=== PATIENT | male | born 1960 | race Caucasian/White ===

== ENCOUNTER 2016-11-05 10:49 | Outpatient (CLI) | payer OTHER | END 2016-11-05 10:50 | disposition home or self-care (01) | DX: M19.041 Primary osteoarthritis, right hand (principal) ==

== ENCOUNTER 2017-03-08 10:40 | Inpatient (IN) | payer OTHER ==
--- NOTE | 2017-03-08 12:47 | ED Physician Documentation ---
PD HPI ABD PAIN - Stated complaint Stated Complaint: RECTAL PAIN - Chief complaint Chief Complaint: Abd Pain - History obtained from History obtained from: Patient - History of Present Illness Timing - onset: How many weeks ago (1 week of rectal pain worsening to severe the past day or so.) Timing - duration: Weeks (1) Timing - details: Gradual onset, Still present Quality: Cramping, Aching, Stabbing, Pain (rectal area with sitting, wiping, pressure. Worse the past couple of days.). No: Fullness/distended Location: Other (perirectal and some to LLQ area.) Improved by: Position. No: Eating Worsened by: Position, Palpation. No: Eating Associated symptoms: Nausea. No: Fever, Vomiting, Diarrhea, Constipation, Dysuria Similar symptoms before: Has not had sx before Review of Systems Ten Systems: 10 systems reviewed and negative Constitutional: reports: Fever (subjective), Chills, Myalgias Nose: denies: Rhinorrhea / runny nose, Congestion Throat: denies: Sore throat Cardiac: denies: Chest pain / pressure, Palpitations Respiratory: denies: Dyspnea, Cough GI: reports: Abdominal Pain. denies: Nausea, Vomiting, Constipation, Diarrhea : denies: Dysuria, Frequency Skin: denies: Rash, Lesions Musculoskeletal: denies: Neck pain, Back pain Neurologic: denies: Generalized weakness, Focal weakness, Numbness, Near syncope Endocrine: reports: Easy bruising / bleeding. denies: Weight loss, Weight gain PD PAST MEDICAL HISTORY - Past Medical History Cardiovascular: Hypertension, Deep vein thrombosis, Atrial fibrillation Respiratory: Sleep apnea Endocrine/Autoimmune: None GI: GERD, Colon polyps : None HEENT: None Psych: Depression Musculoskeletal: Osteoarthritis Derm: None - Past Surgical History General: Colonoscopy, Other Ortho: Arthroscopic surgery, Other HEENT: Tonsil/Adenoidectomy - Present Medications Home Medications: Ambulatory Orders Medication Instructions Recorded Confirmed Folic Acid/Multivit-Min/Lutein 1 each PO DAILY 05/13/13 03/08/17 [Multi-Vitamin Gummies] Venlafaxine [Effexor] 37.5 mg PO DAILY 05/13/13 03/08/17 Vitamin B Complex [B Complex] 1 each PO DAILY 05/13/13 03/08/17 Fish Oil/Borage/Flax/Om3,6,9#1 400 mg PO DAILY 08/19/13 03/08/17 [Hehvlehb-Ecza-Ktgyaa Oil Sftgl] Hydrocodone/Acetaminophen 1 tab PO Q6HR PRN 01/23/16 03/08/17 [Hydrocodon-Acetaminophen 5-325] Rivaroxaban [Xarelto] 20 mg PO QPM 01/23/16 03/08/17 Atorvastatin [Lipitor] 10 mg PO QPM 03/08/17 03/08/17 Sildenafil Citrate [Viagra] 50 - 100 mg PO DAILY PRN 03/08/17 03/08/17 - Allergies Allergies/Adverse Reactions: Allergies Allergy/AdvReac Type Severity Reaction Status Date / Time lisinopril Allergy Respiratory Verified 03/08/17 10:49 - Social History Does the pt smoke?: No Smoking Status: Never smoker Does the pt drink ETOH?: No Does the pt have substance abuse?: No - Immunizations Immunizations are current?: Yes PD ED PE NORMAL - Vitals Vital signs reviewed: Yes - General General: Alert and oriented X 3, Well developed/nourished - HEENT HEENT: Pharynx benign - Neck Neck: Supple, no meningeal sign, No adenopathy - Cardiac Cardiac: RRR, No murmur - Respiratory Respiratory: Clear bilaterally - Abdomen Abdomen: Normal bowel sounds, Soft, Non tender, Non distended, No organomegaly - Male Male : Deferred - Rectal Rectal: Other (marked perirectal and digital rectal tenderness, without palpable induration and no noted pointing/redness/ drainage. ) - Back Back: No CVA TTP - Derm Derm: Normal color, Warm and dry, No rash - Extremities Extremities: No tenderness to palpate, Normal ROM s pain, No edema, No calf tenderness / cord - Neuro Neuro: Alert and oriented X 3, No motor deficit, No sensory deficit, Normal speech - Psych Psych: Normal mood, Normal affect Results - Vitals Vitals: Vital Signs - 24 hr 03/08/17 03/08/17 03/08/17 10:47 12:30 14:44 Temperature 36.7 C 37.1 C Heart Rate 91 85 77 Heart Rate [ Brachial] Respiratory 14 17 18 Rate Blood Pressure 142/80 H 122/62 121/62 Blood Pressure [Left Brachial artery] O2 Saturation 100 98 97 03/08/17 15:15 Temperature 36.6 C Heart Rate Heart Rate [ 77 Brachial] Respiratory 16 Rate Blood Pressure Blood Pressure 139/72 H [Left Brachial artery] O2 Saturation 97 Oxygen O2 Source Room air - Labs Labs: Laboratory Tests 03/08/17 03/08/17 03/08/17 13:24 13:24 13:24 WBC 15.3 H RBC 4.44 L Hgb 13.8 L Hct 40.6 L MCV 91.6 MCH 31.0 MCHC 33.9 RDW 13.3 Plt Count 213 MPV 9.0 Neut # 12.0 H Lymph # 1.6 [place] # 1.6 H Eos # 0.1 Baso # 0.0 Absolute Nucleated RBC 0.01 Nucleated RBCs 0.1 PT 15.1 H INR 1.3 H APTT 28.1 Sodium 136 Potassium 3.5 Chloride 102 Carbon Dioxide 26 Anion Gap 8.0 BUN 19 Creatinine 1.0 Estimated GFR (MDRD) 77 L Glucose 107 H Calcium 8.9 Total Bilirubin 1.4 H AST 17 ALT 17 Alkaline Phosphatase 83 Total Protein 7.3 Albumin 3.9 Globulin 3.4 Albumin/Globulin Ratio 1.1 Lipase 18 L - Rads (name of study) pelvic CT Radiology: Prelim report reviewed (5x2x3 cm rectal abscess with question of early fistula tract. ) PD MEDICAL DECISION MAKING - ED course Complexity details: reviewed results, considered differential (perirectal abscess not easily accessible externally and he is on Xarelto. Given IV abx and pain meds. ), d/w patient, d/w medical consultant (Dr. Barnett, Surgery, who talked with surgery at [facility] to discuss if would be done here or transferred. Subsequently patient felt to be stable enough to be able to hold Xarelto and do drainage surgery here. Deferred to Hospitalist given the concurrent medical history. ) Departure - Departure Disposition: 66 [facility] DC/Xfer Clinical Impression: Rosa-rectal abscess, Anticoagulant long-term use Leukocytosis Qualifiers: Leukocytosis type: unspecified Qualified Code(s): D72.829 - Elevated white blood cell count, unspecified Condition: Stable Record reviewed to determine appropriate education?: Yes Discharge Date/Time: 03/08/17 17:10
[2017-03-08] MEDS ORDERED: KETOROLAC 60 MG/2 ML VIAL IVP STA (13:02)
[2017-03-08] MEDS ORDERED: ONDANSETRON 4 MG/2 ML VIAL IVP STA (13:02)
[2017-03-08] MEDS ORDERED: HYDROmorphone 1 MG/ML SYRINGE IVP STA (13:02)
[2017-03-08] MEDS ORDERED: HYDROmorphone 1 MG/ML SYRINGE ONE (13:23)
[2017-03-08] MEDS ORDERED: ONDANSETRON 4 MG/2 ML VIAL ONE (13:23)
[2017-03-08] MEDS ORDERED: KETOROLAC 30 MG/ML VIAL ONE ×2 (13:24)
[2017-03-08 13:34] LABS: BASOPHILS % (AUTO) 0.3 %; EOSINOPHILS # (AUTO) 0.1 10^3/uL (0.0-0.7); EOSINOPHILS % (AUTO) 0.4 %; HCT - HEMATOCRIT 40.6 % (42.0-52.0); HGB - HEMOGLOBIN 13.8 g/dL (14.0-18.0); LYMPHOCYTES # (AUTO) 1.6 10^3/uL (1.5-3.5); LYMPHOCYTES % (AUTO) 10.3 %; MEAN CORPUSCULAR HGB CONC 33.9 g/dL (32.0-36.0); MEAN CORPUSCULAR VOLUME 91.6 fL (80.0-94.0); MONOCYTES # (AUTO) 1.6 10^3/uL (0.0-1.0); MONOCYTES % (AUTO) 10.5 %; NEUTROPHILS % (AUTO) 78.5 %; NUCLEATED RED BLOOD CELLS AUTO 0.1 /100WBC; RED BLOOD COUNT 4.44 10^6/uL (4.70-6.10); RED CELL DISTRIBUTION WIDTH 13.3 % (12.0-15.0); UNCORRECTED WHITE BLOOD COUNT 15.3 x10^3/uL; WHITE BLOOD COUNT 15.3 x10^3/uL (4.8-10.8)
[2017-03-08] MEDS ORDERED: IOPAMIDOL-300 100 ML VIAL IVP ONE (13:36)
[2017-03-08 13:37] LABS: INR 1.3 (0.8-1.2); PT - PROTHROMBIN TIME 15.1 secs (9.9-12.6)
[2017-03-08 13:44] LABS: PARTIAL THROMBOPLASTIN TIME 28.1 secs (24.9-33.3)
[2017-03-08 13:46] LABS: ALBUMIN/GLOBULIN RATIO 1.1 (1.0-2.2); BILIRUBIN,TOTAL 1.4 mg/dL (0.2-1.0); CALCIUM 8.9 mg/dL (8.5-10.3); POTASSIUM 3.5 mmol/L (3.5-5.0); TOTAL PROTEIN 7.3 g/dL (6.7-8.2)
[2017-03-08] MEDS ORDERED: cefTRIAXone 1 GM in SODIUM CHLORIDE 0.9% MINIBAG 100 ML IV STA (13:48)
[2017-03-08] MEDS ORDERED: metroNIDAZOLE 500 MG/100 ML 100 ML IV ONE (13:48)
[2017-03-08] MEDS ORDERED: cefTRIAXone 1 GM VIAL ONE (13:56)
--- NOTE | 2017-03-08 14:06 | CT Preliminary Report ---
Exam: CT Abdomen/Pelvis W/ IMPRESSION: 5.6 x 2.4 x 2.9 cm posterior perirectal abscess with partial fistulous tract formation to the left buttock/perianal soft tissues. RADIA The above findings were discussed with Dr. Ahmadi by Dr. Светлана Corona at 14:04 hrs on 03/08/17. SITE ID: [id number]
[2017-03-08] MEDS ORDERED: metroNIDAZOLE 500 MG/100 ML 100 ML ONE (14:38)
--- NOTE | 2017-03-08 15:04 | CT Report ---
EXAM: CT ABDOMEN AND PELVIS EXAM DATE: 03/08/2017 01:36 PM. CLINICAL HISTORY: Rectal pain for few days; feverish. COMPARISONS: None. TECHNIQUE: Routine helical CT imaging was performed through the abdomen and pelvis. IV contrast: 100 mL Isovue 300. Enteric contrast: No. Reconstructions: Coronal and sagittal. In accordance with CT protocol optimization, one or more of the following dose reduction techniques w ere utilized for this exam: automated exposure control, adjustment of mA and/or KV based on patient s ize, or use of iterative reconstructive technique. FINDINGS: Lung Bases: Unremarkable. Liver: Normal. No masses. Gallbladder/Bile Ducts: Unremarkable. Spleen: Normal. Pancreas: Normal. Adrenal Glands: Normal. Kidneys: Normal. No masses or hydronephrosis. Peritoneal Cavity/Bowel: Normal. No free fluid, free air or adenopathy. No masses or acute inflammato ry process. The appendix is well visualized and normal. Pelvic Organs: 5.6 x 2.4 x 2.9 cm fluid collection with a thick irregular enhancing wall, and a tiny amount of air, axial image 99, coronal image 88, centered posterior to the mid rectum. Small amount o f adjacent edema. This abscess does not extend to the skin although there is a 8 mm linear extension of this abscess, more posteriorly and to the left, to within 1 cm of the skin of the adjacent left bu ttock. Normal prostate. Normal seminal vesicles. Small caliber urinary bladder without stones. Vasculature: No aneurysms or other significant abnormality. Bones: No significant abnormality. Other: None. IMPRESSION: 5.6 x 2.4 x 2.9 cm posterior perirectal abscess with partial fistulous tract formation to the left buttock/perianal soft tissues. RADIA The above findings were discussed with Dr. Ahmadi by Dr. Светлана Corona at 14:04 hrs on 03/08/17. Referring Provider Line: [phone] SITE ID: [id number]
[2017-03-08] MEDS ORDERED: SODIUM CHLORIDE 0.9% 1,000 ML IV ONE (16:30)
[2017-03-08] MEDS ORDERED: SODIUM CHLORIDE FLUSH 0.9% 10 ML SYRINGE IVP PRN (16:34)
[2017-03-08] MEDS ORDERED: ONDANSETRON ODT 4 MG TABLET TL PRN (16:34)
[2017-03-08] MEDS ORDERED: AMPICILLIN/SULBACTAM 3 GM in SODIUM CHLORIDE 0.9% MINIBAG 100 ML IV STA (16:38)
--- NOTE | 2017-03-08 17:53 | HISTORY & PHYSICAL EXAMINATION ---
DATE OF ADMISSION: 03/08/2017 PRIMARY CARE PROVIDER: Rupert Garrison MD. CHIEF COMPLAINT: Rectal pain. HISTORY OF PRESENT ILLNESS: The patient says he has had the pain for 3 days, woke up and felt somethi ng was different. The pain got worse over a period of time. No increased pain with pooping. The patie nt said he has had no bleeding in his poop, no pus in the poop, has not pooped since yesterday, but t hen he has not eaten since yesterday. The patient had fevers last 2 nights, sweats last night. The pa joie has had no nausea, vomiting, diarrhea. REVIEW OF SYSTEMS: A complete review of systems collected and positive only as noted in the history o f present illness, otherwise negative except he does have nocturia some of the time depending on how much water he drinks and how late. PAST MEDICAL HISTORY: Remarkable for hypertension, DVT last year, atrial fibrillation in the remote p ast. The patient also has sleep apnea. The patient had GERD and colon polyps also. He has depression. The patient has arthritis. PAST SURGICAL HISTORY: Colonoscopy, arthroscopic surgery, tonsils and adenoidectomy. ALLERGIES: LISINOPRIL. MEDICATIONS: 1. Folic acid 1 a day. 2. Effexor 75 mg once a day. 3. Vitamin B complex 1 a day. 4. Fish oil 4 mg a day. 5. Hydrocodone/acetaminophen 5/325 mg. 1 every 6 hours as needed. 6. Xarelto (rivaroxaban) 20 mg a day. PERSONAL AND SOCIAL HISTORY: The patient was born in [place], but raised in [facility], to be [employer] [facility]. After high school the patient went into the [employer], worked for the [employer], and he has worked various jobs including [employer] and [employer]. The patient smoked for a very short ti me cigarettes. The patient used to drink fairly heavily, but has not drank anything in the last 5 yea rs. FAMILY HISTORY: Positive for stroke. Mother and half-brother with diabetes, melanoma. PHYSICAL EXAMINATION: GENERAL: Male of stated age, well-developed, well-nourished, does not appear in any acute distress. VITAL SIGNS: Temperature 36.7, 91, 14, 142/80, 100. EYES: EOMs within normal limits. PERRLA. Nonicteric. MOUTH AND THROAT: Moist mucous membranes. No other pathology noted. NECK: Supple. Nontender. No lymphadenopathy, no thyromegaly. CHEST WALL: Nontender. Symmetric. HEART: Normal sinus rhythm. No murmur, rubs, clicks heard. LUNGS: Clear to auscultation. ABDOMEN: Soft, nontender, normal bowel sounds all 4 quadrants. The patient's rectal exams is not done by this physician, it was previously done. EXTREMITIES: No edema, 1+ distal pulses, normal capillary refill. SKIN: No suspicious lesions, dermatitis noted. NEURO: Cognition intact. Cranial nerves intact. Motor intact. LABORATORY DATA: White count is 15.3, 13 and 40 hemoglobin and hematocrit, platelets are 213. INR is 1.3, PTT 28.1. Sodium 136, potassium 3.5, chloride 26, CO2 is 19, creatinine is 1.0, glucose 107, sushila cium 8.9, bilirubin 1.4. Liver enzymes are normal. Albumin is 3.9. The patient's CAT scan shows the a bscess perirectal. SUMMARY: This is a 56-year-old gentleman with a 3-day history of rectal pain, fevers, past medical hi story remarkable for DVT, atrial fibrillation, hypertension, depression, sleep apnea. He was admitted with a perirectal abscess and requiring surgical incision and drainage and IV antibiotics. DIAGNOSES: 1. Perirectal abscess. 2. Hypertension. 3. Obstructive sleep apnea. 4. Gastrointestinal reflux disease. 5. Depression. DISCUSSION/DECISION MAKIN. Perirectal abscess will be drained by Dr. Barnett who has been consulted. The patient will have I V antibiotics, namely Unasyn and Flagyl to cover the anaerobes, as well as the gram negatives. Also w ill cover gram-positives if there is skin etiology with strep and staph. 2. The patient will have blood pressure medications continued after surgery as needed. 3. For obstructive sleep apnea, the patient has a CPAP mask and machine needs to be used here. 4. The patient's GERD will be treated with home medications or famotidine if unable to find any at [facility] that are listed. 5. The patient's depression will be treated with his Effexor from home. HOSPITAL ISSUES: 1. CODE STATUS: FULL CODE. 2. VTE PROPHYLAXIS: None until after surgery except for SCDs and then transition to Lovenox. 3. DIET: N.p.o. 4. Activity: After surgery he will be out of bed ad padmini. 5. Tubes and lines will have a peripheral IV at this juncture. 6. Hospital status: He will be an admission, is expected he will take at least 2 nights to determine the patient's condition is improved enough to warrant safe discharge given the perirectal abscess, ne ed for IV antibiotics and the fevers and elevated white count. 7. Length of stay is estimated at 3 nights. 8. DISPOSITION: Expected to be home. JOB #: [id number] EXT JOB #:[id number]
[2017-03-08] MEDS: NS W/20 MEQ KCL 1,000 ML IV SCH (18:01)
[2017-03-08] MEDS: AMPICILLIN/SULBACTAM 3 GM in SODIUM CHLORIDE 0.9% MINIBAG 100 ML IV SCH (18:04)
[2017-03-08 19:12] LABS: PH,URINE 6.5 PH (5.0-7.5)
[2017-03-08 19:14] LABS: BILIRUBIN,URINE NEGATIVE (NEGATIVE); UA CHARGE (STRIP ONLY) YES; UR CULTURE IF IND NOT INDICATED
[2017-03-08] MEDS: HYDROmorphone 1 MG/ML SYRINGE IVP PRN ×2 (19:35→21:59)
[2017-03-08] MEDS: FAMOTIDINE 20 MG TABLET PO SCH (21:58)
[2017-03-08] MEDS: SODIUM CHLORIDE FLUSH 0.9% 10 ML SYRINGE IVP SCH (22:00)
[2017-03-08] MEDS ORDERED: PROPOFOL 200 MG/20 ML VIAL IVP ONE (23:00)
[2017-03-08] MEDS ORDERED: ONDANSETRON 4 MG/2 ML VIAL IVP ONE (23:00)
[2017-03-08] MEDS ORDERED: MIDAZOLAM 2 MG/2 ML VIAL IVP ONE (23:00)
[2017-03-08] MEDS ORDERED: ROCURONIUM 50 MG/5 ML VIAL IVP ONE (23:00)
[2017-03-08] MEDS ORDERED: SUCCINYLCHOLINE 200 MG/10 ML VIAL IVP ONE (23:00)
[2017-03-08] MEDS ORDERED: DEXAMETHASONE 4 MG/ML VIAL IVP ONE (23:00)
[2017-03-08] MEDS ORDERED: fentaNYL 100 MCG/2 ML VIAL IVP ONE (23:00)
[2017-03-08] MEDS ORDERED: LIDOCAINE-MPF 2% 5 ML VIAL IM ONE (23:00)
[2017-03-08] MEDS ORDERED: LACTATED RINGERS 1,000 ML IV ONE (23:22)
[2017-03-09] MEDS ORDERED: BUPIVACAINE 0.5% PF 30 ML VIAL INFIL ONE ×2 (00:05)
[2017-03-09] MEDS ORDERED: LIDOCAINE JELLY 2% 5 ML TUBE TOP ONE (00:16)
--- NOTE | 2017-03-09 00:47 | HISTORY & PHYSICAL EXAMINATION ---
Chief Complaint - Chief Complaint Chief Complaint: rectal pain History of Present Illness - History of Present Illness Severity: 07/23 Quality: sharp Timing: gradual onset Duration: 1 week Improved with: position Worsened by: pressure Associated Symptoms: Nausea HPI Comment/Other: 56 yo male with 1 week history of rectal Pain. Denies any blood in stool. Denies abdominal pain. No SOB or CP. No fevers/ Chills. No D/C/. First time episode Review of Systems - Constitutional Constitutional: reports: Fever - Eyes Eyes: denies: Pain - Ears, Nose & Throat Ears, Nose & Throat: denies: Hearing loss, Tinnitus - Cardiovascular Cariovascular: denies: Chest pain - Respiratory Respiratory: reports: Snoring. denies: Cough, Wheezing - Gastrointestinal Gastrointestinal: reports: Other (Rectal Pain). denies: Abdominal pain, Abdominal distention, Constipation, Diarrhea, Change in bowel habits, Rectal bleeding - Genitourinary Genitourinary: reports: Sexual dysfunction. denies: Dysuria, Incontinence - Musculoskeletal Musculoskeletal: denies: Muscle pain - Integumentary Integumentary: denies: Dryness - Neurological Neurological: denies: Headache, Dizziness - Psychiatric Psychiatric: denies: Depression - Hematologic/Lymphatic Hematologic/Lymphatic: reports: Bleeding tendencies (on Xeralto). denies: Anemia - All Other Systems All Other Systems: reports: Reviewed and negative History - Past Medical History Cardiovascular: reports: Hypertension, Deep vein thrombosis, Atrial fibrillation Respiratory: reports: Sleep apnea Endocrine/Autoimmune: reports: None GI: reports: GERD, Colon polyps : reports: None HEENT: reports: None Psych: reports: Depression Musculoskeletal: reports: Osteoarthritis Derm: reports: None - Past Surgical History General: reports: Colonoscopy, Other Ortho: reports: Arthroscopic surgery, Other HEENT: reports: Tonsil/Adenoidectomy - Substance History Use: Uses substance without health or social issues: NONE Abuse: Recurrent use of substance despite neg consequences: NONE Dependence: Experiences withdrawal or developed tolerances: NONE Meds/Allgy - Home Medications Home Medications: Ambulatory Orders Medication Instructions Recorded Confirmed Folic Acid/Multivit-Min/Lutein 1 each PO DAILY 05/13/13 03/08/17 [Multi-Vitamin Gummies] Venlafaxine [Effexor] 37.5 mg PO DAILY 05/13/13 03/08/17 Vitamin B Complex [B Complex] 1 each PO DAILY 05/13/13 03/08/17 Fish Oil/Borage/Flax/Om3,6,9#1 400 mg PO DAILY 08/19/13 03/08/17 [Qdmmucvc-Tdob-Csyaym Oil Sftgl] Hydrocodone/Acetaminophen 1 tab PO Q6HR PRN 01/23/16 03/08/17 [Hydrocodon-Acetaminophen 5-325] Rivaroxaban [Xarelto] 20 mg PO QPM 01/23/16 03/08/17 Atorvastatin [Lipitor] 10 mg PO QPM 03/08/17 03/08/17 Sildenafil Citrate [Viagra] 50 - 100 mg PO DAILY PRN 03/08/17 03/08/17 - Allergies Allergies/Adverse Reactions: Allergies Allergy/AdvReac Type Severity Reaction Status Date / Time lisinopril Allergy Respiratory Verified 03/08/17 10:49 Exam - Vital Signs Reviewed Vital Signs: Yes Vital Signs: Vital Signs x48h Pulse Ox 03/09/17 00:37 94 03/09/17 00:32 100 - Physical Exam General Appearance: positive: Alert, Mild distress Eyes Bilateral: positive: PERRL, EOMI ENT: positive: No signs of dehydration Neck: positive: No JVD Respiratory: positive: Chest non-tender, No respiratory distress, Breath sounds nml Cardiovascular: positive: Regular rate & rhythm Peripheral Pulses: positive: 2+ Abdomen: positive: Non-tender, Nml bowel sounds. negative: Guarding, Rebound Rectal: positive: Stool - heme NEG, Tenderness, Hemorrhoid Skin: positive: Warm, Dry Extremities: positive: Full ROM Neurologic/Psychiatric: positive: Oriented x3, CN's nml (2-12) Conclusion/Plan - Problem List (1) Rosa-rectal abscess Conclusion/Plan: NPO IV ABX OR for rigid sigmoidoscopy and I& D of per-rectal abscess - Lab Results Fish Bones: 03/08/17 13:24 03/08/17 13:24 - Diagnostic Imaging Results Diagnostic Imaging Results: positive: Read contemporaneously Diagnostic Imaging Results Comments: CT abd/P 03/08/17IMPRESSION: 5.6 x 2.4 x 2.9 cm posterior perirectal abscess with partial fistulous tract formation to the left buttock/perianal soft tissues. Issues/Core Measures - Anticipated LOS Anticipated Stay Length: Less than 2 midnights - DVT/VTE - Prophylaxis VTE/DVT Device ordered at admit?: Yes VTE/DVT Prophylaxis med ordered at admit?: No Not Ordered - Medical Reason: Contraindicated (on Xeralto)
--- NOTE | 2017-03-09 01:01 | OPERATIVE REPORT ---
Operative Report - General Admit Date: 03/08/17 Procedure Date: 03/08/17 Planned Procedure: Exam under Anesthesia,Rigid sigmoidoscopy with I&D of Per- rectal abscess Pre-Op Diagnosis: Perirectal Abscess Post Op Diagnosis: Thrombosed Hemorrhoids - Procedure Note Primary Surgeon: Dr. Barnett Anesthesia Provider: Jennifer Lima CRNA Anesthesia Technique: General ET tube Pathology: Thrombosed large right Hemorrhoid. Left perirectal spaces I&D and exploration no abscess found. 1 " iodoform packing placed. Estimated Blood Loss (in cc): 50 Complications: None - Other Other Information/Narrative: Please see dictated Operative Report
[2017-03-09] MEDS ORDERED: HYDROmorphone PCA 10 MG IV PRN (01:02)
[2017-03-09] MEDS: NS W/20 MEQ KCL 1,000 ML IV SCH ×2 (01:22→11:56)
[2017-03-09] MEDS: AMPICILLIN/SULBACTAM 3 GM in SODIUM CHLORIDE 0.9% MINIBAG 100 ML IV SCH ×4 (01:22→17:36)
[2017-03-09] MEDS: SODIUM CHLORIDE FLUSH 0.9% 10 ML SYRINGE IVP SCH ×3 (01:23→22:55)
[2017-03-09] MEDS: metroNIDAZOLE 500 MG/100 ML 100 ML IV SCH ×4 (02:04→18:16)
[2017-03-09] MEDS: ACETAMINOPHEN 1,000 MG/100 ML 100 ML IV SCH ×4 (02:09→20:20)
[2017-03-09 05:50] LABS: BASOPHILS % (AUTO) 0.2 %; HCT - HEMATOCRIT 39.5 % (42.0-52.0); HGB - HEMOGLOBIN 13.1 g/dL (14.0-18.0); LYMPHOCYTES % (AUTO) 3.3 %; MEAN CORPUSCULAR HEMOGLOBIN 30.9 pg (27.0-31.0); MEAN CORPUSCULAR HGB CONC 33.3 g/dL (32.0-36.0); MEAN CORPUSCULAR VOLUME 92.8 fL (80.0-94.0); MEAN PLATELET VOLUME 8.8 fL (7.4-11.4); MONOCYTES % (AUTO) 4.8 %; NEUTROPHILS % (AUTO) 91.7 %; RED BLOOD COUNT 4.25 10^6/uL (4.70-6.10); RED CELL DISTRIBUTION WIDTH 13.2 % (12.0-15.0); UNCORRECTED WHITE BLOOD COUNT 15.8 x10^3/uL; WHITE BLOOD COUNT 15.8 x10^3/uL (4.8-10.8)
[2017-03-09 05:59] LABS: BILIRUBIN,TOTAL 0.9 mg/dL (0.2-1.0); CALCIUM 8.3 mg/dL (8.5-10.3); TOTAL PROTEIN 6.5 g/dL (6.7-8.2)
[2017-03-09 06:14] LABS: BAND NEUTROPHILS % (MANUAL) 7 %; LYMPHOCYTES % (MANUAL) 1 %; NEUTROPHILS % (MANUAL) 90 %; NP AUTO DIFFERENTIAL? YES; NP MAN DIFFERENTIAL? NO; PLATELET ESTIMATE, MANUAL NORMAL (130-450,000) (NORMAL); TOTAL CELLS COUNTED 100
[2017-03-09] MEDS: FAMOTIDINE 20 MG TABLET PO SCH ×2 (09:24→20:18)
[2017-03-09] MEDS: POLYETHYLENE GLYCOL 3350 17 GM PACKET PO SCH (09:30)
[2017-03-09] MEDS: PSYLLIUM PACKET PO SCH (09:34)
--- NOTE | 2017-03-09 14:20 | PROVIDER PROGRESS NOTE ---
Subjective - General Admit Date: 03/08/17 Procedure Date: 03/08/17 Post Op Days: 1 Procedure Performed: Exam under anesthesia, rigid sigmoidoscopy, Attempted I&D of abscess - Review of Systems Wound/Incisions: positive: Healing well General: positive: No symptoms HEENT: positive: No symptoms Pulmonary: positive: No symptoms Cardiovascular: positive: No symptoms Gastrointestinal: positive: Flatus Genitourinary: positive: No symptoms Musculoskeletal: positive: No symptoms Skin: positive: No symptoms Psychiatric: positive: No symptoms (Patiente seen at bedside. States pain much improved. Has not had bowel movement yet. No other issues reported.) All Other Systems: positive: Reviewed and negative Objective - Patient Data Reviewed Vital Signs: Yes Vital Signs: Vital Signs x48h Temp Pulse Resp BP Pulse Ox 03/09/17 13:00 16 03/09/17 11:00 15 03/09/17 09:00 16 03/09/17 08:32 36.5 C 79 16 131/76 H 95 03/09/17 06:33 16 Weight: Weight 03/07/17 03/08/17 03/09/17 23:59 23:59 23:59 Weight (kg) 113.2 kg Intake & Output: Intake and Output Totals x24h 03/07/17 03/08/17 03/09/17 23:59 23:59 23:59 Intake Total 466 2584 Balance 466 2584 - Lab Results Lab Results: 03/09/17 05:30 03/09/17 05:30 Other Lab Results: Lab Results x24hrs 03/09/17 03/09/17 03/08/17 Range/Units 05:30 05:30 18:05 WBC 15.8 H (4.8-10.8) x10^3/uL RBC 4.25 L (4.70-6.10) 10^6/uL Hgb 13.1 L (14.0-18.0) g/dL Hct 39.5 L (42.0-52.0) % MCV 92.8 (80.0-94.0) fL MCH 30.9 (27.0-31.0) pg MCHC 33.3 (32.0-36.0) g/dL RDW 13.2 (12.0-15.0) % Plt Count 210 (130-450) 10^3/uL MPV 8.8 (7.4-11.4) fL Neut # Not Reportable Lymph # Not Reportable [place] # Not Reportable Eos # Not Reportable Baso # Not Reportable Absolute Nucleated RBC Not Reportable Total Counted 100 Band Neuts % (Manual) 7 (0 - 10) % Neutrophils # (Manual) 15.3 H (1.5-6.6) 10^3/uL Lymphocytes # (Manual) 0.2 L (1.5-3.5) 10^3/uL Monocytes # (Manual) 0.3 (0.0-1.0) 10^3/uL Nucleated RBCs Not Reportable Differential Comment MANUAL DIFFERENTIAL Platelet Estimate NORMAL (130-450,000) (NORMAL) RBC Morph Micro Appear NORMAL APPEARANCE (NORMAL) Sodium 136 (135-145) mmol/L Potassium 4.0 (3.5-5.0) mmol/L Chloride 106 (101-111) mmol/L Carbon Dioxide 22 (21-32) mmol/L Anion Gap 8.0 (6-13) BUN 18 (6-20) mg/dL Creatinine 1.0 (0.6-1.2) mg/dL Estimated GFR (MDRD) 77 L (>89) Glucose 157 H (70-100) mg/dL Calcium 8.3 L (8.5-10.3) mg/dL Total Bilirubin 0.9 (0.2-1.0) mg/dL AST 16 (10-42) IU/L ALT 17 (10-60) IU/L Alkaline Phosphatase 75 (42-121) IU/L Total Protein 6.5 L (6.7-8.2) g/dL Albumin 3.3 (3.2-5.5) g/dL Globulin 3.2 (2.1-4.2) g/dL Albumin/Globulin Ratio 1.0 (1.0-2.2) Urine Color DARK YELLOW Urine Clarity CLEAR (CLEAR) Urine pH 6.5 (5.0-7.5) PH Ur Specific [place] 1.015 (1.002-1.030) Urine Protein TRACE (NEGATIVE) mg/dL Urine Glucose (UA) NEGATIVE (NEGATIVE) mg/dL Urine Ketones 15 H (NEGATIVE) mg/dL Urine Occult Blood NEGATIVE (NEGATIVE) Urine Nitrite NEGATIVE (NEGATIVE) Urine Bilirubin NEGATIVE (NEGATIVE) Urine Urobilinogen 1 (NORMAL) (NORMAL) E.U./dL Ur Leukocyte Esterase NEGATIVE (NEGATIVE) Ur Microscopic Review NOT INDICATED Urine Culture Comments NOT INDICATED - Current Medications Current Medications: Current Medications Generic Name Dose Route Start Last Admin Trade Name Freq PRN Reason Stop Dose Admin Famotidine 20 mg 03/08/17 21:00 03/09/17 09:24 Pepcid PO 20 mg BID WIL Administration Hydromorphone HCl 1 mg 03/08/17 16:34 03/08/17 21:59 Dilaudid Inj IVP 1 mg Q2HR PRN Administration Pain 8 to 10 Hydromorphone HCl 10 mg 03/09/17 01:02 03/09/17 01:51 Dilaudid Datawarehouse Developer (Use Datawarehouse Developer Order Set) IV 10 mg PRN PRN Administration PAIN Protocol Potassium Chloride/Sodium Chloride 1,000 mls @ 100 mls/hr 03/08/17 18:00 11:56 Normal Saline 0.9% W/20 Meq Kcl IV 100 mls/hr .Q10H WIL Administration Metronidazole 100 mls @ 100 mls/hr 03/09/17 00:00 03/09/17 13:18 Flagyl 500 Mg/100 Ml IV 100 mls/hr Q6HR WIL Administration Ampicillin Sodium/Sulbactam 100 mls @ 200 mls/hr 03/08/17 18:00 03/09/17 11:56 Sodium 3 gm/ Sodium Chloride IV 200 mls/hr Q6HR WIL Administration Acetaminophen 100 mls @ 400 mls/hr 03/09/17 02:00 03/09/17 09:24 Ofirmev IV 400 mls/hr Q6H WIL Administration Polyethylene Glycol 17 gm 03/09/17 09:00 03/09/17 09:30 Miralax PO 17 gm DAILY WIL Administration Psyllium Hydrophilic Mucilloid 1 packet 03/09/17 09:00 03/09/17 09:34 Metamucil PO Not Given DAILY WIL Sodium Chloride 10 ml 03/08/17 22:00 03/09/17 01:23 Normal Saline Flush 0.9% IVP 10 ml Q8HR WIL Administration - Physical Exam Wound/Incisions: positive: Healing well General Appearance: positive: No acute distress Eyes Bilateral: positive: EOMI Cardiovascular: positive: Regular rate & rhythm Rectal: positive: Hemorrhoid (TTP perirectal area, no fluctuance packing in place.) Skin: positive: Warm, Dry Extremities: positive: Full ROM Neurologic/Psychiatric: positive: Oriented x3, CN's nml (2-12) Impression/Plan - Problem List Problem List: 56 yo male with rectal pain s/p exam under anesthesia and attempted I&D of abscess Resume all home meds continue sitz baths continue IV antibiotics continue pain control remove packin in 1 day topical 1% cortisone cream topical Lidocaine PRN Surgery will follow
[2017-03-09] MEDS: LIDOCAINE/PRILOCAINE 2.5% CREAM 5 GM TUBE TOP PRN (16:17)
[2017-03-09] MEDS: RIVAROXABAN 10 MG TABLET PO SCH (16:18)
[2017-03-09] MEDS: HYDROCORTISONE 1% CREAM 28 GM TUBE TOP SCH ×2 (16:18→22:55)
[2017-03-09 17:34] LABS: BASOPHILS # (AUTO) 0.1 10^3/uL (0.0-0.1); BASOPHILS % (AUTO) 0.3 %; EOSINOPHILS % (AUTO) 0.1 %; HCT - HEMATOCRIT 39.7 % (42.0-52.0); HGB - HEMOGLOBIN 13.2 g/dL (14.0-18.0); LYMPHOCYTES # (AUTO) 1.4 10^3/uL (1.5-3.5); LYMPHOCYTES % (AUTO) 7.6 %; MEAN CORPUSCULAR HEMOGLOBIN 30.9 pg (27.0-31.0); MEAN CORPUSCULAR HGB CONC 33.2 g/dL (32.0-36.0); MEAN CORPUSCULAR VOLUME 93.1 fL (80.0-94.0); MEAN PLATELET VOLUME 9.3 fL (7.4-11.4); MONOCYTES # (AUTO) 1.8 10^3/uL (0.0-1.0); MONOCYTES % (AUTO) 9.5 %; NEUTROPHILS # (AUTO) 15.2 10^3/uL (1.5-6.6); NEUTROPHILS % (AUTO) 82.5 %; RED BLOOD COUNT 4.26 10^6/uL (4.70-6.10); RED CELL DISTRIBUTION WIDTH 13.4 % (12.0-15.0); UNCORRECTED WHITE BLOOD COUNT 18.5 x10^3/uL; WHITE BLOOD COUNT 18.5 x10^3/uL (4.8-10.8)
[2017-03-09] MEDS: ATORVASTATIN 10 MG TABLET PO SCH (20:18)
[2017-03-10] MEDS: NS W/20 MEQ KCL 1,000 ML IV SCH (00:21)
[2017-03-10] MEDS: AMPICILLIN/SULBACTAM 3 GM in SODIUM CHLORIDE 0.9% MINIBAG 100 ML IV SCH ×4 (00:21→17:38)
[2017-03-10] MEDS: metroNIDAZOLE 500 MG/100 ML 100 ML IV SCH ×4 (00:38→19:03)
[2017-03-10] MEDS: ACETAMINOPHEN 1,000 MG/100 ML 100 ML IV SCH ×2 (01:45→08:18)
[2017-03-10] MEDS: SODIUM CHLORIDE FLUSH 0.9% 10 ML SYRINGE IVP SCH ×3 (06:18→20:42)
[2017-03-10 06:22] LABS: ALBUMIN/GLOBULIN RATIO 1.2 (1.0-2.2); BASOPHILS % (AUTO) 0.2 %; BILIRUBIN,TOTAL 0.7 mg/dL (0.2-1.0); CALCIUM 8.1 mg/dL (8.5-10.3); CREATININE 0.9 mg/dL (0.6-1.2); EOSINOPHILS # (AUTO) 0.2 10^3/uL (0.0-0.7); EOSINOPHILS % (AUTO) 1.3 %; HCT - HEMATOCRIT 36.7 % (42.0-52.0); HGB - HEMOGLOBIN 12.2 g/dL (14.0-18.0); LYMPHOCYTES # (AUTO) 1.4 10^3/uL (1.5-3.5); MEAN CORPUSCULAR HGB CONC 33.2 g/dL (32.0-36.0); MEAN CORPUSCULAR VOLUME 93.4 fL (80.0-94.0); MEAN PLATELET VOLUME 9.7 fL (7.4-11.4); MONOCYTES # (AUTO) 1.3 10^3/uL (0.0-1.0); MONOCYTES % (AUTO) 10.4 %; NEUTROPHILS # (AUTO) 9.7 10^3/uL (1.5-6.6); NEUTROPHILS % (AUTO) 77.1 %; NUCLEATED RED BLOOD CELLS AUTO 0.1 /100WBC; POTASSIUM 3.9 mmol/L (3.5-5.0); RED BLOOD COUNT 3.93 10^6/uL (4.70-6.10); RED CELL DISTRIBUTION WIDTH 13.1 % (12.0-15.0); TOTAL PROTEIN 5.9 g/dL (6.7-8.2); UNCORRECTED WHITE BLOOD COUNT 12.6 x10^3/uL; WHITE BLOOD COUNT 12.6 x10^3/uL (4.8-10.8)
[2017-03-10] MEDS ORDERED: NS W/20 MEQ KCL 1,000 ML IV SCH (07:37)
--- NOTE | 2017-03-10 07:39 | OPERATIVE REPORT ---
DATE OF SURGERY: 03/08/2017 00:00:00 PREOPERATIVE DIAGNOSIS: Perirectal abscess. POSTOPERATIVE DIAGNOSIS: External thrombosed hemorrhoid. PROCEDURE: Examination under anesthesia, rigid sigmoidoscopy, attempted incision and drainage of abscess, incision of hemorrhoid. SURGEON: Sheng Barnett DO. ANESTHESIA: General by Bea Lima CRNA. FINDINGS: Thrombosed right external hemorrhoid. SPECIMEN: None. COMPLICATIONS: None. ESTIMATED BLOOD LOSS: 50 mL. INTRAVENOUS FLUIDS: 800 mL. INDICATIONS: This 56-year-old male presents with perirectal pain for a 1-week duration associated with fever of 37.6 degrees Celsius and is found to have a leukocytosis of 15.3 thousand. Computed tomography scan was consistent with a 5.6 x 2.4 x 2.9 cm posterior perirectal abscess with partial fistulous tract formation to the left buttock perianal soft tissues. The risks and benefits including but not limited to infection, bleeding, risk of abscess, risk of fistula, fecal incontinence, abscess recurrence, anesthesia risk, scar formation , and skin irregularities were discussed with the patient. The patient agreed to the procedure and signed consent. All questions were answered. PROCEDURE: The patient was taken to the operative room and placed in the supine position. General anesthesia was induced after SCDs were placed. The patient had been given IV Unasyn and Flagyl on the med/surg floor perioperatively. The patient was prepped and draped in the usual sterile fashion. A timeout was completed, verifying the correct patient, procedure site, and position prior to start of the procedure. The patient was then placed in the lithotomy position, and a rectal exam was performed. A large approximately 6 cm thrombosed external hemorrhoid of the right posterior cushion was noted. No fluctuance or bogginess was noted on rectal exam, and no masses were palpated. A rigid sigmoidoscopy was then performed with normal-appearing colon to 17 cm. After injection of 2% lidocaine for local anesthesia, the dentate line was inspected and probed without finding a fistulous tract, and then a #15 blade was used to make an approximately 2 cm incision into the posterior perirectal tissue. The buttock and perirectal tissue were bluntly explored for abscess to the ischiorectal space. No abscess was encountered. A smaller 1 cm counter- incision along the anterior perirectal space was made, and blunt exploration did not yield any abscess. Attention was turned to the right perirectal space, and the thrombosed external hemorrhoid was incised and evacuated and minimaly explored for abscess with none found. The entire area was washed with saline and copious irrigation of the incision sites and explored spaces was performed with saline. A 1-inch iodoform packing was placed in the left buttock incision, then 1/2-inch iodoform packing was gently placed in the hemorrhoid. The free ends of the packing were then sutured together so as to come out as 1 piece. Hemostasis was maintained. Surgicel with lidocaine jelly was placed into the anal canal. An abdominal pad dressing, followed by stretch undershorts were then placed. The patient tolerated the procedure well, was extubated and taken to PACU for recovery. All counts were correct. JOB #: [id number] EXT JOB #:[id number] JEANIE
[2017-03-10] MEDS: POLYETHYLENE GLYCOL 3350 17 GM PACKET PO SCH (08:18)
[2017-03-10] MEDS: PSYLLIUM PACKET PO SCH (08:18)
[2017-03-10] MEDS: VENLAFAXINE ER 37.5 MG CAPSULE PO SCH (08:18)
[2017-03-10] MEDS: SENNA 8.6 MG TABLET PO SCH (08:19)
[2017-03-10] MEDS: FAMOTIDINE 20 MG TABLET PO SCH ×2 (08:19→20:41)
[2017-03-10] MEDS: LIDOCAINE/PRILOCAINE 2.5% CREAM 5 GM TUBE TOP PRN (08:20)
[2017-03-10] MEDS: HYDROCORTISONE 1% CREAM 28 GM TUBE TOP SCH ×2 (08:21→20:49)
[2017-03-10] MEDS ORDERED: DOCUSATE SODIUM 250 MG CAPSULE PO SCH (09:00)
--- NOTE | 2017-03-10 10:55 | PROVIDER PROGRESS NOTE ---
Subjective - General Admit Date: 03/08/17 Procedure Date: 03/08/17 Post Op Days: 2 Procedure Performed: Exam under anesthesia, rigid sigmoidoscopy, Attempted I&D of abscess - Review of Systems Wound/Incisions: positive: Healing well General: positive: No symptoms HEENT: positive: No symptoms Pulmonary: positive: No symptoms Cardiovascular: positive: No symptoms Gastrointestinal: positive: Flatus Genitourinary: positive: No symptoms Musculoskeletal: positive: No symptoms Skin: positive: No symptoms Psychiatric: positive: No symptoms (Patiente seen at bedside. States pain much improved. Has not had bowel movement yet. No other issues reported.) All Other Systems: positive: Reviewed and negative - Other Other Information/Narrative: pt seen at bedside. pain improving, Decreasing use of [employer]UCK AND [employer]SPORT MECH[employer]IC. No BM. ambulatig well , using hydrocortisone & lidocaine topicals. performing sitz baths. Objective - Patient Data Reviewed Vital Signs: Yes Vital Signs: Vital Signs x48h Temp Pulse Resp BP Pulse Ox 03/10/17 10:00 14 03/10/17 07:36 36.5 C 71 14 142/95 H 98 03/10/17 04:00 14 Weight: Weight 03/08/17 03/09/17 03/10/17 23:59 23:59 23:59 Weight (kg) 113.2 kg Intake & Output: Intake and Output Totals x24h 03/08/17 03/09/17 03/10/17 23:59 23:59 23:59 Intake Total 466 4676 1737 Balance 466 4676 1737 - Lab Results Lab Results: 03/10/17 05:22 03/10/17 05:22 Other Lab Results: Lab Results x24hrs 03/10/17 03/10/17 03/09/17 Range/Units 05:22 05:22 17:25 WBC 12.6 H 18.5 H (4.8-10.8) x10^3/uL RBC 3.93 L 4.26 L (4.70-6.10) 10^6/uL Hgb 12.2 L 13.2 L (14.0-18.0) g/dL Hct 36.7 L 39.7 L (42.0-52.0) % MCV 93.4 93.1 (80.0-94.0) fL MCH 31.0 30.9 (27.0-31.0) pg MCHC 33.2 33.2 (32.0-36.0) g/dL RDW 13.1 13.4 (12.0-15.0) % Plt Count 211 251 (130-450) 10^3/uL MPV 9.7 9.3 (7.4-11.4) fL Neut # 9.7 H 15.2 H (1.5-6.6) 10^3/uL Lymph # 1.4 L 1.4 L (1.5-3.5) 10^3/uL [place] # 1.3 H 1.8 H (0.0-1.0) 10^3/uL Eos # 0.2 0.0 (0.0-0.7) 10^3/uL Baso # 0.0 0.1 (0.0-0.1) 10^3/uL Absolute Nucleated RBC 0.01 0.00 x10^3/uL Nucleated RBCs 0.1 0.0 /100WBC Sodium 141 (135-145) mmol/L Potassium 3.9 (3.5-5.0) mmol/L Chloride 111 (101-111) mmol/L Carbon Dioxide 24 (21-32) mmol/L Anion Gap 6.0 (6-13) BUN 14 (6-20) mg/dL Creatinine 0.9 (0.6-1.2) mg/dL Estimated GFR (MDRD) 87 L (>89) Glucose 113 H (70-100) mg/dL Calcium 8.1 L (8.5-10.3) mg/dL Total Bilirubin 0.7 (0.2-1.0) mg/dL AST 15 (10-42) IU/L ALT 14 (10-60) IU/L Alkaline Phosphatase 67 (42-121) IU/L Total Protein 5.9 L (6.7-8.2) g/dL Albumin 3.2 (3.2-5.5) g/dL Globulin 2.7 (2.1-4.2) g/dL Albumin/Globulin Ratio 1.2 (1.0-2.2) - Current Medications Current Medications: Current Medications Generic Name Dose Route Start Last Admin Trade Name Freq PRN Reason Stop Dose Admin Atorvastatin Calcium 10 mg 03/09/17 21:00 03/09/17 20:18 Lipitor PO 10 mg QPM WIL Administration Docusate Sodium 250 - 500 mg 03/10/17 09:00 03/10/17 08:19 Colace 250mg Capsule PO 500 mg DAILY WIL Administration Famotidine 20 mg 03/08/17 21:00 03/10/17 08:19 Pepcid PO 20 mg BID WIL Administration Hydrocortisone 1 applic 03/09/17 15:00 03/10/17 08:21 Hydrocortisone TOP 1 applic BID WIL Administration Hydromorphone HCl 1 mg 03/08/17 16:34 03/08/17 21:59 Dilaudid Inj IVP 1 mg Q2HR PRN Administration Pain 8 to 10 Hydromorphone HCl 10 mg 03/09/17 01:02 03/09/17 01:51 Dilaudid Lead Military Analyst (Use Lead Military Analyst Order Set) IV 10 mg PRN PRN Administration PAIN Protocol Metronidazole 100 mls @ 100 mls/hr 03/09/17 00:00 03/10/17 06:25 Flagyl 500 Mg/100 Ml IV 100 mls/hr Q6HR WIL Administration Ampicillin Sodium/Sulbactam 100 mls @ 200 mls/hr 03/08/17 18:00 03/10/17 06:25 Sodium 3 gm/ Sodium Chloride IV 200 mls/hr Q6HR WIL Administration Acetaminophen 100 mls @ 400 mls/hr 03/09/17 02:00 03/10/17 08:18 Ofirmev IV 400 mls/hr Q6H WIL Administration Potassium Chloride/Sodium Chloride 1,000 mls @ 30 mls/hr 03/10/17 07:37 08:27 Normal Saline 0.9% W/20 Meq Kcl IV 30 mls/hr .[id number] WIL Administration Lidocaine/Prilocaine 1 applic 03/09/17 14:17 03/10/17 08:20 Emla 2.5% Cream TOP 1 appful DAILY PRN Administration PAIN Polyethylene Glycol 17 gm 03/09/17 09:00 03/10/17 08:18 Miralax PO 17 gm DAILY WIL Administration Psyllium Hydrophilic Mucilloid 1 packet 03/09/17 09:00 03/10/17 08:18 Metamucil PO 1 packet DAILY WIL Administration Rivaroxaban 20 mg 03/09/17 17:00 03/09/17 16:18 Xarelto PO 20 mg 1700 WIL Administration Senna 8.6 - 17.2 mg 03/10/17 09:00 03/10/17 08:19 Senokot PO 17.2 mg DAILY WIL Administration Sodium Chloride 10 ml 03/08/17 22:00 03/10/17 06:18 Normal Saline Flush 0.9% IVP Not Given Q8HR WIL Venlafaxine HCl 37.5 mg 03/10/17 09:00 03/10/17 08:18 Effexor Er PO 37.5 mg DAILY WIL Administration - Physical Exam Wound/Incisions: positive: Healing well (ecchymosis not increasing in size. minimal non purulent drainage noted. tender to palpation) General Appearance: positive: No acute distress Eyes Bilateral: positive: EOMI ENT: positive: No signs of dehydration Neck: positive: Nml inspection Respiratory: positive: Breath sounds nml Cardiovascular: positive: Regular rate & rhythm Abdomen: positive: Non-tender, Nml bowel sounds Rectal: positive: Tenderness Neurologic/Psychiatric: positive: Oriented x3, CN's nml (2-12) Impression/Plan - Problem List Problem List: 56 yo male with rectal pain s/p exam under anesthesia and attempted I&D of abscess POD#2 Resume all home meds including Xeralto continue sitz baths continue IV antibiotics- will go home on PO abx cipro flagy x 1 week continue pain control- will begin transition to PO pain meds remove packin tonight continue topical 1% cortisone cream continue topical Lidocaine PRN
[2017-03-10] MEDS ORDERED: HYDROmorphone PCA 10 MG IV PRN (11:07)
[2017-03-10] MEDS ORDERED: SODIUM CHLORIDE 0.9% 1,000 ML IV SCH (12:00)
[2017-03-10] MEDS: oxyCOD/ACETAMIN 5 MG/325 MG TABLET PO PRN ×2 (15:48→21:18)
[2017-03-10] MEDS: RIVAROXABAN 10 MG TABLET PO SCH (17:38)
--- NOTE | 2017-03-10 18:24 | PROVIDER PROGRESS NOTE ---
Assessment/Plan - Problem List (1) Rosa-rectal abscess Assessment/Plan: 56 yo male with thrombosed hemorrhoid s/p Exam under anesthesia Continue current IV abx Continue current management - Current Meds Current Meds: Current Medications Generic Name Dose Route Start Last Admin Trade Name Freq PRN Reason Stop Dose Admin Atorvastatin Calcium 10 mg 03/09/17 21:00 03/09/17 20:18 Lipitor PO 10 mg QPM WIL Administration Famotidine 20 mg 03/08/17 21:00 03/10/17 08:19 Pepcid PO 20 mg BID WIL Administration Hydrocortisone 1 applic 03/09/17 15:00 03/10/17 08:21 Hydrocortisone TOP 1 applic BID WIL Administration Metronidazole 100 mls @ 100 mls/hr 03/09/17 00:00 03/10/17 12:19 Flagyl 500 Mg/100 Ml IV 100 mls/hr Q6HR WIL Administration Sodium Chloride 1,000 mls @ 30 mls/hr 03/10/17 12:00 03/10/17 11:39 Normal Saline 0.9% IV 30 mls/hr .[id number] WIL Administration Lidocaine/Prilocaine 1 applic 03/09/17 14:17 03/10/17 08:20 Emla 2.5% Cream TOP 1 appful DAILY PRN Administration PAIN Oxycodone/Acetaminophen 2 tab 03/10/17 11:04 03/10/17 15:48 Percocet 5 Mg/325 Mg PO 2 tab Q4HR PRN Administration PAIN Psyllium Hydrophilic Mucilloid 1 packet 03/09/17 09:00 03/10/17 08:18 Metamucil PO 1 packet DAILY WIL Administration Rivaroxaban 20 mg 03/09/17 17:00 03/10/17 17:38 Xarelto PO 20 mg 1700 WIL Administration Senna 8.6 - 17.2 mg 03/10/17 09:00 03/10/17 08:19 Senokot PO 17.2 mg DAILY WIL Administration Sodium Chloride 10 ml 03/08/17 22:00 03/10/17 13:43 Normal Saline Flush 0.9% IVP Not Given Q8HR WIL Venlafaxine HCl 37.5 mg 03/10/17 09:00 03/10/17 08:18 Effexor Er PO 37.5 mg DAILY WIL Administration - Lab Result Fish Bone Diagrams: 05/28/17 05:22 03/10/17 05:22 - Additional Planning My Orders: My Active Orders 03/09/17 21:00 Atorvastatin [Lipitor] 10 mg PO QPM 03/10/17 09:00 Venlafaxine ER [Effexor ER] 37.5 mg PO DAILY 03/10/17 11:04 oxyCODONE/ACET 5/325 [Percocet 5 mg/325 mg] 2 tab PO Q4HR PRN 03/10/17 12:00 Sodium Chloride 0.9% [Normal Saline 0.9%] 1,000 ml IV 30 mls/hr 03/10/17 18:21 DAISHA Lizarraga [RC] QSHIFT 03/10/17 19:00 Piperacillin/Tazobactam [Zosyn] 3.375 gm Sodium Chloride 0.9% Minibag [Normal Saline 0.9% Minibag] 100 ml IV Q6H Subjective - Subjective Patient Reports: Other (Feels "not right") Nursing Reports: Other (Pt seen at [facility]. RN reports episode of temp37.6 C with chills. Pt had bopwel movement today and pulled out packing. Denies N/V. No SOB CP or SOB. Denies calf pain. He did not want to eat dinner.) Objective Vital Signs: Vital Signs - 24 hr 03/09/17 03/10/17 03/10/17 20:01 00:01 01:36 Temperature 36.6 C Heart Rate [ 64 Brachial] Respiratory 16 18 18 Rate Blood Pressure 138/76 H [Left Brachial artery] O2 Saturation 96 03/10/17 03/10/17 03/10/17 04:00 07:36 10:00 Temperature 36.5 C Heart Rate [ 71 Brachial] Respiratory 14 14 14 Rate Blood Pressure 142/95 H [Left Brachial artery] O2 Saturation 98 03/10/17 03/10/17 03/10/17 15:44 15:52 17:36 Temperature 37.6 C H 37.1 C Heart Rate [ 87 Brachial] Respiratory 16 Rate Blood Pressure 165/79 H [Left Brachial artery] O2 Saturation 98 03/10/17 17:55 Temperature Heart Rate [ 85 Brachial] Respiratory 16 Rate Blood Pressure 130/76 [Left Brachial artery] O2 Saturation 95 Oxygen O2 Source Room air I&O (Last 24 Hrs): Intake and Output Totals x24h 03/08/17 03/09/17 03/10/17 23:59 23:59 23:59 Intake Total 525 3125 5957 Balance 749 7212 8477 General: Alert, Oriented x3 Neuro: Alert Cardiovascular: Regular rate Respiratory: Breath sounds nml Abdomen: Normal bowel sounds, Soft Rectal: Tenderness (Surgical site packing previously removed by patient. No increase in edema or erythema. no drainage from surgical sites) - Results Results: Laboratory Results WBC 12.6 x10^3/uL (4.8-10.8) H 03/10/17 05:22 RBC 3.93 10^6/uL (4.70-6.10) L 03/10/17 05:22 Hgb 12.2 g/dL (14.0-18.0) L 03/10/17 05:22 Hct 36.7 % (42.0-52.0) L 03/10/17 05:22 MCV 93.4 fL (80.0-94.0) 03/10/17 05:22 MCH 31.0 pg (27.0-31.0) 03/10/17 05:22 MCHC 33.2 g/dL (32.0-36.0) 03/10/17 05:22 RDW 13.1 % (12.0-15.0) 03/10/17 05:22 Plt Count 211 10^3/uL (130-450) 03/10/17 05:22 MPV 9.7 fL (7.4-11.4) 03/10/17 05:22 Neut # 9.7 10^3/uL (1.5-6.6) H 03/10/17 05:22 Lymph # 1.4 10^3/uL (1.5-3.5) L 03/10/17 05:22 Parmer # 1.3 10^3/uL (0.0-1.0) H 03/10/17 05:22 Eos # 0.2 10^3/uL (0.0-0.7) 03/10/17 05:22 Baso # 0.0 10^3/uL (0.0-0.1) 03/10/17 05:22 Absolute Nucleated RBC 0.01 x10^3/uL 03/10/17 05:22 Total Counted 100 03/09/17 05:30 Band Neuts % (Manual) 7 % (0-10) 03/09/17 05:30 Neutrophils # (Manual) 15.3 10^3/uL (1.5-6.6) H 03/09/17 05:30 Lymphocytes # (Manual) 0.2 10^3/uL (1.5-3.5) L 03/09/17 05:30 Monocytes # (Manual) 0.3 10^3/uL (0.0-1.0) 03/09/17 05:30 Nucleated RBCs 0.1 /100WBC 03/10/17 05:22 Differential Comment MANUAL DIFFERENTIAL 03/09/17 05:30 Platelet Estimate NORMAL (130-450,000) (NORMAL) 03/09/17 05:30 RBC Morph Micro Appear NORMAL APPEARANCE (NORMAL) 03/09/17 05:30 PT 15.1 secs (9.9-12.6) H 03/08/17 13:24 INR 1.3 (0.8-1.2) H 03/08/17 13:24 APTT 28.1 secs (24.9-33.3) 03/08/17 13:24 Sodium 141 mmol/L (135-145) 03/10/17 05:22 Potassium 3.9 mmol/L (3.5-5.0) 03/10/17 05:22 Chloride 111 mmol/L (101-111) 03/10/17 05:22 Carbon Dioxide 24 mmol/L (21-32) 03/10/17 05:22 Anion Gap 6.0 (6-13) 03/10/17 05:22 BUN 14 mg/dL (6-20) 03/10/17 05:22 Creatinine 0.9 mg/dL (0.6-1.2) 03/10/17 05:22 Estimated GFR (MDRD) 87 (>89) L 03/10/17 05:22 Glucose 113 mg/dL (70-100) H 03/10/17 05:22 Calcium 8.1 mg/dL (8.5-10.3) L 03/10/17 05:22 Total Bilirubin 0.7 mg/dL (0.2-1.0) 03/10/17 05:22 AST 15 IU/L (10-42) 03/10/17 05:22 ALT 14 IU/L (10-60) 03/10/17 05:22 Alkaline Phosphatase 67 IU/L (42-121) 03/10/17 05:22 Total Protein 5.9 g/dL (6.7-8.2) L 03/10/17 05:22 Albumin 3.2 g/dL (3.2-5.5) 03/10/17 05:22 Globulin 2.7 g/dL (2.1-4.2) 03/10/17 05:22 Albumin/Globulin Ratio 1.2 (1.0-2.2) 03/10/17 05:22 Lipase 18 U/L (22-51) L 03/08/17 13:24 Urine Color DARK YELLOW 03/08/17 18:05 Urine Clarity CLEAR (CLEAR) 03/08/17 18:05 Urine pH 6.5 PH (5.0-7.5) 03/08/17 18:05 Ur Specific [place] 1.015 (1.002-1.030) 03/08/17 18:05 Urine Protein TRACE mg/dL (NEGATIVE) 03/08/17 18:05 Urine Glucose (UA) NEGATIVE mg/dL (NEGATIVE) 03/08/17 18:05 Urine Ketones 15 mg/dL (NEGATIVE) H 03/08/17 18:05 Urine Occult Blood NEGATIVE (NEGATIVE) 03/08/17 18:05 Urine Nitrite NEGATIVE (NEGATIVE) 03/08/17 18:05 Urine Bilirubin NEGATIVE (NEGATIVE) 03/08/17 18:05 Urine Urobilinogen 1 (NORMAL) E.U./dL (NORMAL) 03/08/17 18:05 Ur Leukocyte Esterase NEGATIVE (NEGATIVE) 03/08/17 18:05 Ur Microscopic Review NOT INDICATED 03/08/17 18:05 Urine Culture Comments NOT INDICATED 03/08/17 18:05 - Procedures Procedures: Procedures EXPLOR TEND SHEATH-HAND (08/19/13)
[2017-03-10] MEDS ORDERED: HYDROmorphone 1 MG/ML SYRINGE ONE (18:43)
[2017-03-10] MEDS: LIDOCAINE JELLY 2% 5 ML TUBE TOP ONE (18:48)
[2017-03-10] MEDS ORDERED: LIDOCAINE JELLY 2% 5 ML TUBE TOP SCH (18:54)
[2017-03-10] MEDS ORDERED: HYDROmorphone 1 MG/ML SYRINGE IVP SCH (18:56)
[2017-03-10] MEDS: PIPERACILLIN/TAZOBACTAM 3.375 GM in SODIUM CHLORIDE 0.9% MINIBAG 100 ML IV SCH (20:41)
[2017-03-10] MEDS: ATORVASTATIN 10 MG TABLET PO SCH (20:41)
[2017-03-11] MEDS: metroNIDAZOLE 500 MG/100 ML 100 ML IV SCH ×2 (02:26→06:19)
[2017-03-11] MEDS: oxyCOD/ACETAMIN 5 MG/325 MG TABLET PO PRN ×2 (02:36→08:42)
[2017-03-11] MEDS: PIPERACILLIN/TAZOBACTAM 3.375 GM in SODIUM CHLORIDE 0.9% MINIBAG 100 ML IV SCH ×2 (03:21→07:16)
[2017-03-11 06:47] LABS: EOSINOPHILS % (AUTO) 2.6 %; HCT - HEMATOCRIT 38.9 % (42.0-52.0); HGB - HEMOGLOBIN 13.4 g/dL (14.0-18.0); MEAN CORPUSCULAR HEMOGLOBIN 31.4 pg (27.0-31.0); MEAN CORPUSCULAR HGB CONC 34.3 g/dL (32.0-36.0); MEAN CORPUSCULAR VOLUME 91.5 fL (80.0-94.0); MONOCYTES % (AUTO) 13.2 %; NEUTROPHILS % (AUTO) 69.2 %; RED BLOOD COUNT 4.25 10^6/uL (4.70-6.10); RED CELL DISTRIBUTION WIDTH 13.2 % (12.0-15.0); UNCORRECTED WHITE BLOOD COUNT 13.4 x10^3/uL; WHITE BLOOD COUNT 13.4 x10^3/uL (4.8-10.8)
[2017-03-11 07:00] LABS: BILIRUBIN,TOTAL 0.8 mg/dL (0.2-1.0); CALCIUM 8.6 mg/dL (8.5-10.3); CREATININE 1.1 mg/dL (0.6-1.2); POTASSIUM 3.7 mmol/L (3.5-5.0); TOTAL PROTEIN 6.9 g/dL (6.7-8.2)
[2017-03-11] MEDS: SODIUM CHLORIDE FLUSH 0.9% 10 ML SYRINGE IVP SCH (07:18)
[2017-03-11 07:31] LABS: BAND NEUTROPHILS % (MANUAL) 0 %
[2017-03-11 07:33] LABS: EOSINOPHILS % (MANUAL) 2 %; LYMPHOCYTES % (MANUAL) 8 %; NEUTROPHILS % (MANUAL) 77 %; TOTAL CELLS COUNTED 100
[2017-03-11 07:35] LABS: NP AUTO DIFFERENTIAL? YES; NP MAN DIFFERENTIAL? NO
[2017-03-11 08:17] VITALS: BP 151/87
[2017-03-11] MEDS: PSYLLIUM PACKET PO SCH (08:40)
[2017-03-11] MEDS: FAMOTIDINE 20 MG TABLET PO SCH (08:40)
[2017-03-11] MEDS: VENLAFAXINE ER 37.5 MG CAPSULE PO SCH (08:40)
[2017-03-11] MEDS: SENNA 8.6 MG TABLET PO SCH (08:40)
[2017-03-11] MEDS: LIDOCAINE/PRILOCAINE 2.5% CREAM 5 GM TUBE TOP PRN (08:42)
[2017-03-11] MEDS: HYDROCORTISONE 1% CREAM 28 GM TUBE TOP SCH (08:42)
--- NOTE | 2017-03-11 12:05 | Discharge Plan ---
Discharge Plan Disposition: Home, Self Care Condition: Good Prescriptions: oxyCODONE/ACET 5/325 [Percocet 5 mg/325 mg] 1 tab PO Q4HR PRN #30 tablet PRN Reason: Pain Cefuroxime Axetil [Ceftin] 250 mg PO Q12H #20 tablet Lidocaine/Prilocain 2.5% Cream [Emla 2.5% Cream] 1 applic TOP DAILY PRN #1 tube PRN Reason: Pain Diet: Regular Shower Restrictions: No Driving Restrictions: No Additional Instructions or Follow Up instructions: Do sitz baths twice a day for next 5 days. Or longer if needed./ Make appts to see your PCP and the surgeon. Get Hydrocortisone ointment to use twice a day. Finish your antibiotic pills. Thank you, Dr. Dickson and Dr. Barnett No Smoking: If you smoke, Please STOP! Call for help. Follow-up with: Rupert Garrison MD [Primary Care Provider] - 1 Week SUNIL VELÁSQUEZ MD [Provider Admit Priv/Credential] - 2 Weeks
--- NOTE | 2017-03-11 14:04 | PROVIDER PROGRESS NOTE ---
Subjective - General Admit Date: 03/08/17 Procedure Date: 03/08/17 Post Op Days: 3 Procedure Performed: Exam under anesthesia, rigid sigmoidoscopy, Attempted I&D of abscess - Review of Systems Wound/Incisions: positive: Healing well (ecchymosis not increasing in size. minimal non purulent drainage noted. tender to palpation), Dressing dry and intact, No drainage General: positive: No symptoms HEENT: positive: No symptoms Pulmonary: positive: No symptoms Cardiovascular: positive: No symptoms Gastrointestinal: positive: No symptoms (patient seen at bedside, Healing well. pain much improved. ambulating having bowel movements, tolerating diet) Genitourinary: positive: No symptoms Musculoskeletal: positive: No symptoms Skin: positive: No symptoms Psychiatric: positive: No symptoms (Patiente seen at bedside. States pain much improved. Has not had bowel movement yet. No other issues reported.) All Other Systems: positive: Reviewed and negative Objective - Patient Data Vital Signs: Vital Signs x48h Temp Pulse Resp BP Pulse Ox 03/11/17 08:13 36.9 C 84 18 151/87 H 97 Intake & Output: Intake and Output Totals x24h 03/09/17 03/10/17 03/11/17 23:59 23:59 23:59 Intake Total 4676 3847 1695 Balance 4676 3842 1695 - Lab Results Lab Results: 03/11/17 06:32 03/11/17 06:32 Other Lab Results: Lab Results x24hrs 03/11/17 03/11/17 Range/Units 06:32 06:32 WBC 13.4 H (4.8-10.8) x10^3/uL RBC 4.25 L (4.70-6.10) 10^6/uL Hgb 13.4 L (14.0-18.0) g/dL Hct 38.9 L (42.0-52.0) % MCV 91.5 (80.0-94.0) fL MCH 31.4 H (27.0-31.0) pg MCHC 34.3 (32.0-36.0) g/dL RDW 13.2 (12.0-15.0) % Plt Count 246 (130-450) 10^3/uL MPV 9.0 (7.4-11.4) fL Neut # Not Reportable Lymph # Not Reportable Mcpherson # Not Reportable Eos # Not Reportable Baso # Not Reportable Absolute Nucleated RBC Not Reportable Total Counted 100 Band Neuts % (Manual) 0 (0 - 10) % Reactive Lymphs % (Man) 5 % Neutrophils # (Manual) 10.3 H (1.5-6.6) 10^3/uL Lymphocytes # (Manual) 1.7 (1.5-3.5) 10^3/uL Monocytes # (Manual) 1.1 H (0.0-1.0) 10^3/uL Eosinophils # (Manual) 0.3 (0-0.7) 10^3/uL Nucleated RBCs Not Reportable Differential Comment MANUAL DIFFERENTIAL Manual Slide Review Indicated Sodium 135 (135-145) mmol/L Potassium 3.7 (3.5-5.0) mmol/L Chloride 105 (101-111) mmol/L Carbon Dioxide 22 (21-32) mmol/L Anion Gap 8.0 (6-13) BUN 8 (6-20) mg/dL Creatinine 1.1 (0.6-1.2) mg/dL Estimated GFR (MDRD) 69 L (>89) Glucose 110 H (70-100) mg/dL Calcium 8.6 (8.5-10.3) mg/dL Total Bilirubin 0.8 (0.2-1.0) mg/dL AST 21 (10-42) IU/L ALT 19 (10-60) IU/L Alkaline Phosphatase 74 (42-121) IU/L Total Protein 6.9 (6.7-8.2) g/dL Albumin 3.5 (3.2-5.5) g/dL Globulin 3.4 (2.1-4.2) g/dL Albumin/Globulin Ratio 1.0 (1.0-2.2) - Physical Exam Wound/Incisions: positive: Healing well, No drainage (no signs of bleeding or purulence) General Appearance: positive: No acute distress Eyes Bilateral: positive: EOMI ENT: positive: No signs of dehydration Neck: positive: No JVD Respiratory: positive: Breath sounds nml Cardiovascular: positive: Regular rate & rhythm Abdomen: positive: Non-tender, Nml bowel sounds Back: positive: Nml inspection Skin: positive: Color nml Impression/Plan - Problem List Problem List: 56 yo male with rectal pain s/p exam under anesthesia and attempted I&D of abscess POD#2 Resume all home meds including Xeralto Will be sent home with prescriptions for: oxyCODONE/ACET 5/325 [Percocet 5 mg/325 mg] 1 tab PO Q4HR PRN #30 tablet PRN Reason: Pain Cefuroxime Axetil [Ceftin] 250 mg PO Q12H #20 tablet Lidocaine/Prilocain 2.5% Cream [Emla 2.5% Cream] 1 applic TOP DAILY PRN #1 tube PRN Reason: Pain Will need to do sitz baths and can follow up in clinic in 2 weeks
--- NOTE | 2017-03-24 18:42 | DISCHARGE SUMMARY ---
DATE OF ADMISSION: 03/08/2017 DATE OF DISCHARGE: 03/11/2017 PRIMARY CARE PHYSICIAN: Rupert Garrison MD OUTPATIENT PHYSICAL THERAPIST: Sheng Barnett MD ADMISSION DIAGNOSES 1. Perirectal abscess. 2. Hypertension. 3. Obstructive sleep apnea. 4. Gastrointestinal reflux disease. 5. Depression. DISCHARGE DIAGNOSES 1. Large thrombosed hemorrhoid mimicking perirectal abscess, suspect secondary infection. 2. Hypertension. 3. Obstructive sleep apnea. 4. Gastroesophageal reflux disease. 5. Depression. SPECIAL PROCEDURES: The patient had an abdominopelvic CT. IMPRESSION: A 5.6 x 2.4 x 2.9 cm posterior perirectal abscess with partial fistulous track formation to the left buttock and perianal soft tissues. HOSPITAL COURSE AND MANAGEMENT: Initial presentation, evaluation, as well as the consultation by Dr. Barnett is well described in the history and physical. See copy of same. SUMMARY: This is a 56-year-old gentleman with a 3-day history of rectal pain, fevers, past medical history remarkable for DVT, atrial fibrillation, hypertension, depression, sleep apnea. He was admitted with a perirectal abscess requiring surgical incision and drainage and IV antibiotics. The patient had the antibiotic started with Unasyn and Flagyl. The patient had improvement over the next 24 hours. The patient also uses home CPAP and had blood pressure medicines continued. The patient also started on his home GERD medications, namely famotidine. The patient was taken to the operating room for I and D which was done, but did not find any purulent material; there were bloody clots, the thrombosed anal hemorrhoid. The patient after that had improved pain, was continued on the IV antibiotics. The patient was then discharged home. DISCHARGE PHYSICAL EXAMINATION: On the day of discharge VITAL SIGNS: 36.9, 84, 151/87, 18, 97 on room air saturation. EYES: EOM within normal limits, PERRL, nonicteric. MOUTH AND THROAT: Moist mucous membranes. No other pathology noted. NECK: No lymphadenopathy, no thyromegaly. CHEST WALL: Nontender. Symmetric. HEART: Normal sinus rhythm. No murmur, rubs, clicks. LUNGS: Clear, good air movement bilaterally. ABDOMEN: Soft, nontender, normal bowel sounds. No hepatosplenomegaly. EXTREMITIES: Without any edema. The patient had minimal pain. LABORATORY DATA: White count was 13.6, down from a max of 18.5. He had 13 and 39 hemoglobin and hematocrit. The patient's sodium 135, potassium 3.7, chloride 105, CO2 of 22, BUN 8. Creatinine 1.1, glucose 110, calcium 8.6. Albumin is 3.5. Liver enzymes are normal. The patient is discharged. ALLERGIES: ONLY ALLERGY TO LISINOPRIL. MEDICATIONS AT HOME 1. Effexor ER 37.5 daily. 2. Viagra 50 to 100 mg daily. 3. Atorvastatin 10 mg q. p.m. 4. Vitamin B complex 1 a day. 5. Rivaroxaban 20 mg at bedtime. 6. Hydrocodone/acetaminophen 1 tab every 6 hours as needed. 7. Folic acid and multivitamin 1 a day. 8. Fish oil and omega 400 mg a day. 9. Oxycodone/acetaminophen 5/325 one every 4 hours as needed. 10. Lidocaine-prilocaine cream, 1 applicator daily. 11. Axetil Ceftin 250 mg q.12 hours. The patient is to use warm soaks and to use dressing changes, daily and as needed. The patient is to followup with Dr. Garrison and Dr. Barnett's clinic. Time spent in discharge activity is less than 30 minutes with collaboration from case management, nursing staff. The patient was examined on day of discharge as noted above. JOB #: [id number] EXT JOB #:[id number] MTDD
== END 2017-03-11 12:29 | disposition home or self-care (01) | DRG 358 ==
LOC: ED 10:40 → MS 16:34
PROVIDERS: ADMIT Internal Medicine; ATTEND Internal Medicine
PROC: 0DJD8ZZ Inspection of Lower Intestinal Tract, Via Natural or Artificial Opening Endoscopic (ICD-10-PCS; 2017-03-08)
PROC: 0JJT0ZZ Inspection of Trunk Subcutaneous Tissue and Fascia, Open Approach (ICD-10-PCS; 2017-03-08)
PROC: 06CY0ZZ Extirpation of Matter from Lower Vein, Open Approach (ICD-10-PCS; principal; 2017-03-08 23:00)
DX: K64.5 Perianal venous thrombosis (principal); M19.90 Unspecified osteoarthritis, unspecified site; G47.33 Obstructive sleep apnea (adult) (pediatric); K21.9 Gastro-esophageal reflux disease without esophagitis; F32.9 Major depressive disorder, single episode, unspecified; I48.91 Unspecified atrial fibrillation; D72.829 Elevated white blood cell count, unspecified; I10 Essential (primary) hypertension; Z86.718 Personal history of other venous thrombosis and embolism; Z79.01 Long term (current) use of anticoagulants; Z86.010 Personal history of colon polyps; Z83.3 Family history of diabetes mellitus; Z82.3 Family history of stroke; Z80.8 Family history of malignant neoplasm of other organs or systems
CPT/HCPCS: 36415; 74177; 80053; 81001; 81003; 83690; 85025; 85610; 85730; 87086; 96361; 96365; 96367; 96375; 99284; 99285

== ENCOUNTER 2018-07-25 07:55 | Outpatient (CLI) | payer OTHER ==
--- NOTE | 2018-07-25 19:06 | MRI Report ---
Reason: SHOULDER PAIN,RIGHT Procedure Date: 07/25/2018 Accession Number: [id number] / [id number] Procedure: MRI - Shoulder RT W/O CPT Code: FULL RESULT: EXAM: RIGHT SHOULDER MRI WITHOUT CONTRAST EXAM DATE: 07/25/2018 08:42 AM. CLINICAL HISTORY: Shoulder pain, right. COMPARISON: Shoulder 2 view right 10/17/2017 10:53 AM. TECHNIQUE: Multiplanar, multisequence T1-weighted and fluid-sensitive sequences of the shoulder without contrast. Other: None. FINDINGS: Acromioclavicular Region: The acromion is type II. Severe arthrosis acromioclavicular joint with inferior 7 mm and superior 11 mm hypertrophic spurring. Mild effacement supraspinous musculotendinous junction from inferior acromioclavicular joint spurring. Negative for increased fluid acromioclavicular joint. Cortical irregularity and subcortical cystic changes acromioclavicular joint. The coracoacromial and coracoclavicular ligaments are intact. Small fluid collection subacromial-subdeltoid bursa. Glenohumeral Region: No subluxation. No effusion or loose bodies. The articular cartilage is unremarkable. The glenohumeral ligaments and joint capsule are unremarkable. Bone Marrow: No fracture, marrow edema or bone lesions. Labrum: The labrum is unremarkable on this nonarthrographic study. Musculature/Rotator Cuff: Negative for fluid signal subscapularis tendon tear. Subscapularis thickening and intermediate signal consistent with a tendinosis. Supraspinatus tendinosis. Near complete or complete fluid signal tear distal anterior supraspinatus tendon 1 cm x 1.4 cm. Anterior aspect of the interstitial fluid signal tear proximal infraspinatus tendon 1.9 cm in length. The rotator cuff muscles are negative for atrophy or edema. Biceps Tendon: Enlargement and intermediate signal of the biceps tendon proximal to the bicipital groove consistent with biceps tendinosis. The biceps anchor is intact. Other: The subcutaneous tissues are unremarkable. IMPRESSION: 1. Diffuse supraspinatus tendinosis with fluid signal distal supraspinatus 1 cm x 1.4 cm near complete or complete tear. 2. Small fluid collection subacromial-subdeltoid bursa. 3. Fluid signal linear partial tear proximal infraspinatus tendon 1.9 cm in length. 4. Biceps tendinosis proximal to the bicipital groove superior aspect lesser tuberosity. 5. Severe arthrosis acromioclavicular joint with mild effacement supraspinatus musculotendinous junction from inferior 7 mm degenerative spurring. [facility] MUSCULOSKELETAL RADIOLOGY SECTION
== END 2018-07-25 07:56 | disposition home or self-care (01) ==
LOC: DI 07:55
PROVIDERS: ATTEND Orthopaedic Surgery Sports Medicine
DX: M75.101 Unspecified rotator cuff tear or rupture of right shoulder, not specified as traumatic (principal); M75.91 Shoulder lesion, unspecified, right shoulder; M25.411 Effusion, right shoulder; M67.921 Unspecified disorder of synovium and tendon, right upper arm; M19.011 Primary osteoarthritis, right shoulder

== ENCOUNTER 2021-03-21 09:52 | Outpatient (CLI) | payer OTHER ==
--- NOTE | 2021-03-21 10:14 | XRAY Report ---
PROCEDURE: Chest 2 View X-Ray INDICATIONS: DYSPNEA ON EXERTION TECHNIQUE: 2 view(s) of the chest. COMPARISON: None. FINDINGS: Surgical changes and devices: None. Lungs and pleura: No pleural effusions or pneumothorax. Lungs are clear. Mediastinum: Mediastinal contours are normal. Heart size is normal. Bones and chest wall: No suspicious bony abnormalities. Soft tissues appear unremarkable. IMPRESSION: No acute cardiopulmonary abnormality Reviewed by: Sameer Romero on 03/21/2021 10:13 AM PDT Approved by: Sameer Romero on 03/21/2021 10:13 AM PDT Station ID: [id number]
== END 2021-03-21 23:59 | disposition home or self-care (01) ==
LOC: DI.N 09:52
PROVIDERS: ATTEND Family Medicine
DX: R06.09 Other forms of dyspnea (principal)

== ENCOUNTER 2021-04-01 09:01 | Outpatient (CLI) | payer OTHER | END 2021-04-01 09:02 | disposition home or self-care (01) | LOC: RT 09:01 | PROVIDERS: ATTEND Family Medicine | DX: R06.09 Other forms of dyspnea (principal) | CPT/HCPCS: 94010 ==

== ENCOUNTER 2021-09-17 10:00 | Emergency (ER) | payer OTHER ==
--- NOTE | 2021-09-17 11:44 | ED Physician Documentation ---
History of Present Illness - Stated complaint Stated Complaint: HIGH BLOOD PRESSURE - Chief complaint Chief Complaint: Cardiac - Additonal information Additional information: 61-year-old male presents the emergency department for 2 concerns 1. His right mastoid tenderness that has been a persistent problem for about 3 weeks. Initially it was somewhat intermittent described as sharp with radiation into the neck and head. But has become constant over the last week. No fevers. He did see a walk-in provider yesterday but no discernible cause was found. 2. He is concerned about elevated blood pressures. He was recently started on a new combination blood pressure medication. He has been checking his pressures at home, walk-in clinic as well as pharmacy and noted that they are consistently above 1 70-1 80. He denies any chest pain or shortness of air. No leg swelling. No exertional dyspnea. Denies changes in bowel or bladder. Gentleman is a non-smoker. He is anticoagulated on Xarelto secondary to a previous history of DVT in his lower extremity about 3 years ago. Review of Systems Constitutional: denies: Fever, Chills Eyes: reports: Reviewed and negative Ears: reports: Ear pain, Other (Right mastoid tenderness) Nose: reports: Reviewed and negative Throat: reports: Reviewed and negative Cardiac: reports: Reviewed and negative Respiratory: reports: Reviewed and negative GI: reports: Reviewed and negative : reports: Reviewed and negative Skin: reports: Reviewed and negative PD PAST MEDICAL HISTORY - Past Medical History Past Medical History: Yes Cardiovascular: Hypertension, Deep vein thrombosis, Atrial fibrillation Respiratory: Sleep apnea Endocrine/Autoimmune: None GI: GERD, Colon polyps : None HEENT: None Psych: Depression Musculoskeletal: Osteoarthritis Derm: None - Past Surgical History General: Colonoscopy, Other Ortho: Arthroscopic surgery, Other HEENT: Tonsil/Adenoidectomy - Present Medications Home Medications: Ambulatory Orders Medication Instructions Recorded Confirmed Folic Acid/Multivit-Min/Lutein 1 each PO DAILY 05/13/13 03/08/17 [Multi-Vitamin Gummies] Vitamin B Complex [B Complex] 1 each PO DAILY 05/13/13 03/08/17 Fish Oil/Borage/Flax/Om3,6,9 1 400 mg PO DAILY 08/19/13 03/08/17 [Scrdclbt-Pgpm-Dhxcvd Oil Sftgl] Hydrocodone/Acetaminophen 1 tab PO Q6HR PRN 01/23/16 03/08/17 [Hydrocodone-Acetamin 5-325 mg] Rivaroxaban [Xarelto] 20 mg PO QPM 01/23/16 03/08/17 Atorvastatin [Lipitor] 10 mg PO QPM 03/08/17 03/08/17 Sildenafil Citrate [Viagra] 50 - 100 mg PO DAILY PRN 03/08/17 03/08/17 Venlafaxine ER [Effexor ER] 37.5 mg PO DAILY 03/09/17 03/09/17 Lidocaine/Prilocain 2.5% Cream 1 applic TOP DAILY PRN #1 tube 03/11/17 [Emla 2.5% Cream] cefUROXime axetiL [Ceftin] 250 mg PO Q12H #20 tablet 03/11/17 oxyCODONE/ACET 5/325 [Percocet 5 1 tab PO Q4HR PRN #30 tablet 03/11/17 mg/325 mg] HYDROcod/ACETAM 5/325 [[place] 5/325] 1 tablet PO BID PRN #10 tablet 09/17/21 - Allergies Allergies/Adverse Reactions: Allergies Allergy/AdvReac Type Severity Reaction Status Date / Time lisinopril Allergy Respiratory Verified 09/17/21 10:10 - Social History Does the pt smoke?: No Smoking Status: Never smoker Does the pt drink ETOH?: No Does the pt have substance abuse?: No - Immunizations Immunizations are current?: Yes PD ED PE NORMAL - General General: Alert and oriented X 3, No acute distress, Well developed/nourished - HEENT HEENT: Atraumatic, EOMI, Ears normal, Moist mucous membranes, Pharynx benign, Other (tenderness right mastoid process without wellign or erythema. ). No: Dentition benign (Patient is missing Most of his teeth in the upper and lower mouth. No gumline swelling fluctuance. No TMJ tenderness) - Neck Neck: Supple, no meningeal sign, No adenopathy - Cardiac Cardiac: RRR, No murmur - Respiratory Respiratory: No respiratory distress, Clear bilaterally - Abdomen Abdomen: Normal bowel sounds, Soft Results - Vitals Vitals: Vital Signs - 24 hr 09/17/21 09/17/21 10:04 11:01 Temperature 36.2 C L Heart Rate 92 93 Respiratory 17 18 Rate Blood Pressure 181/99 H 152/122 H O2 Saturation 99 98 Oxygen O2 Source Room air - EKG (time done) 1141 Rate: Rate (enter#) (76) Rhythm: NSR [place]: Normal QRS: Poor R wave progression Ischemia: Normal ST segments, Q waves (inferior leads) Compare to prior EKG: Old EKG unavailable Computer interpretation: Agree with computer - Labs Labs: Laboratory Tests 09/17/21 09/17/21 09/17/21 11:50 11:50 11:50 WBC 5.0 RBC 4.76 Hgb 15.8 Hct 46.5 MCV 97.7 H MCH 33.2 H MCHC 34.0 RDW 12.6 Plt Count 216 MPV 10.9 Neut # (Auto) 1.9 Lymph # (Auto) 1.7 [place] # (Auto) 1.1 H Eos # (Auto) 0.3 Baso # (Auto) 0.1 Absolute Nucleated RBC 0.00 Nucleated RBC % 0.0 Sodium 136 Potassium 3.8 Chloride 103 Carbon Dioxide 24 Anion Gap 9.0 BUN 19 Creatinine 1.1 Estimated GFR (MDRD) 68 L Glucose 116 H Calcium 8.9 Total Bilirubin 0.9 AST 77 H ALT 127 H Alkaline Phosphatase 71 Troponin I High Sens 4.0 Total Protein 6.7 Albumin 3.9 Globulin 2.8 Albumin/Globulin Ratio 1.4 Lipase 39 - Rads (name of study) CT head Radiology: Final report received (No acute intracranial abnormality. Mild chronic white matter small vessel ischemic changes and cerebral volume loss. No CT evidence of mastoiditis) cxr Radiology: Final report received (No acute cardiopulmonary process) PD MEDICAL DECISION MAKING - ED course Complexity details: reviewed results, re-evaluated patient, considered differential, d/w patient ED course: 61-year-old male presents emergency department for evaluation of elevated blood pressure. He was recently started on an amlodipine hydrochlorothiazide combination medication but has noticed persistently elevated blood pressures at home and at clinics. No chest pain, no shortness of air or exertional dyspnea. No leg swelling. He did have modestly elevated blood pressures here in the emergency department. Screening EKG was nonischemic [place]pe was negative. Chest x-ray without acute focal findings. We will defer further management of the blood pressure to his primary care provider. Screening labs showed no acute worrisome abnormalities. Specifically kidney function is well preserved. We do note modest LFT elevations. Patient denies being a daily drinker. Will advise him to have close follow-up with Dr. Victor Hugo Sorensen for further evaluation of the liver function test. He may benefit from an outpatient abdominal ultrasound. He had also reported 3 weeks of right-sided mastoid tenderness. Though no findings of inner ear infection or swelling externally it was quite tender to the touch. A CT of the head was completed given that he is on Xarelto and he had significant mastoid tenderness. No findings of bleed or mastoid-itis Limited prescription for [place] will be sent to the pharmacy. Patient is advised again close follow-up with Dr. Sorensen. Given the focal tenderness he may benefit from referral to ear nose throat. Emergent return precautions were discussed for chest pain shortness of air. I am prescribing a short course of short-acting opioid pain medication for this patient. I have reviewed the patients LICENSE INSPECTOR and no concerning findings were noted. I have discussed that the opioids are for short term therapy only, and will not be refilled from the ED. Departure - Departure Disposition: Home, Self Care Clinical Impression: Pain of right mastoid, Elevated liver function tests Hypertension Qualifiers: Hypertension type: primary hypertension Qualified Code(s): I10 - Essential (primary) hypertension Condition: Stable Record reviewed to determine appropriate education?: Yes Follow-Up: Victor Hugo Sorensen MD [Primary Care Provider] - Prescriptions: HYDROcod/ACETAM 5/325 [[place] 5/325] 1 tablet PO BID PRN #10 tablet PRN Reason: Pain Comments: Edward you are seen today in the emergency department for concerns of elevated blood pressure as well as pain in your right mastoid region. You do have modest blood pressure elevations here in the emergency department. Your chest x-ray and EKG do not show any acute worrisome findings. Your kidney function is normal. I would like you to begin checking your blood pressure in the morning when you wake up and again about 2 hours after you take your blood pressure medication. Keep a diary of this. It is important that you follow-up this ED visit with Dr. Sorensen to discuss longer-term blood pressure management and goals. Your screening labs today did show modest liver function test elevations. Your bilirubin is however normal. Dr. Sorensen may want to consider outpatient evaluation of this with abdominal ultrasound or referral to a creative services coordinator. The cause of your mastoid pain is not clear. A CT scan did not show findings of mastoiditis. You do not have an inner ear infection or infection within your mouth. If symptoms are not getting better further evaluation with an ear nose throat doctor may be indicated. If at any point you develop leg swelling, have severe shortness of breath or chest pain then please return immediately to the ER for a second evaluation. A limited prescription for [place] has been sent to the pharmacy at the [facility] I am prescribing a short course of narcotic pain medication for you. These are potentially dangerous and addictive medications that should be used carefully. These medications may constipate you. Take an vlrf-ozz-coxrbvh stool softener (docusate) twice daily with plenty of water while taking these medications. If you go 24 hours without a bowel movement, take xcln-tlu-jaxixmg miralax, per package instructions. Do not drink or drive while taking these medications. If you received narcotic or sedating medications while in the emergency department, do not drive for 24 hours. Store this medication in a safe, secure place and out of reach of children. It is a violation of federal law to give or sell this medication to another person or to use in a manner other than prescribed. The ED will not refill narcotic prescriptions, including prescriptions lost or stolen. To dispose of unwanted medications: 1. [facility] at [address] [place] [address] in [place] has a medication drop box. They accept prescription medications (in pill form) Saturday through Saturday 9:00 a.m. to 5:00 p.m. 2. The [facility] [employer] accepts prescription medications (in pill form only) for disposal year round. Call for more information. 3. Contact the [facility] for the next [facility] sponsored prescription drug collection event. , [phone], or [phone]; Note that many narcotic pain relievers also contain Tylenol/acetaminophen. Please ensure that your total dose of acetaminophen from all sources does not exceed 3 g (3000 mg) per day.
[2021-09-17 11:55] LABS: BASOPHILS # (AUTO) 0.1 10^3/uL (0.0-0.1); BASOPHILS % (AUTO) 1.4 %; EOSINOPHILS # (AUTO) 0.3 10^3/uL (0.0-0.7); EOSINOPHILS % (AUTO) 5.2 %; HCT - HEMATOCRIT 46.5 % (42.0-52.0); HGB - HEMOGLOBIN 15.8 g/dL (14.0-18.0); LYMPHOCYTES # (AUTO) 1.7 10^3/uL (1.5-3.5); LYMPHOCYTES % (AUTO) 33.9 %; MEAN CORPUSCULAR HEMOGLOBIN 33.2 pg (27.0-31.0); MEAN CORPUSCULAR VOLUME 97.7 fL (80.0-94.0); MEAN PLATELET VOLUME 10.9 fL (7.4-11.4); MONOCYTES # (AUTO) 1.1 10^3/uL (0.0-1.0); NEUTROPHILS # (AUTO) 1.9 10^3/uL (1.5-6.6); NEUTROPHILS % (AUTO) 37.7 %; PLT - PLATELET COUNT 216 10^3/uL (130-450); RED BLOOD COUNT 4.76 10^6/uL (4.70-6.10); RED CELL DISTRIBUTION WIDTH 12.6 % (12.0-15.0)
--- NOTE | 2021-09-17 12:03 | XRAY Report ---
PROCEDURE: Chest 1 View X-Ray INDICATIONS: Chest Pain TECHNIQUE: One view of the chest was acquired. COMPARISON: 03/21/21 FINDINGS: Surgical changes and devices: None. Lungs and pleura: No pleural effusions or pneumothorax. Lungs are clear. Mediastinum: Mediastinal contours appear unchanged. Heart size is normal. Bones and chest wall: No suspicious bony lesions. Overlying soft tissues appear unremarkable. IMPRESSION: 1. No acute cardiopulmonary disease. Reviewed by: Doni Brenner MD on 09/17/2021 11:02 AM [facility] Approved by: Doni Brenner MD on 09/17/2021 11:02 AM [facility] Station ID: [id number]
[2021-09-17 12:08] LABS: ALBUMIN 3.9 g/dL (3.2-5.5); ALBUMIN/GLOBULIN RATIO 1.4 (1.0-2.2); BILIRUBIN,TOTAL 0.9 mg/dL (0.2-1.0); CALCIUM 8.9 mg/dL (8.5-10.3); CREATININE 1.1 mg/dL (0.6-1.2); POTASSIUM 3.8 mmol/L (3.5-5.0); TOTAL PROTEIN 6.7 g/dL (6.7-8.2)
--- NOTE | 2021-09-17 12:31 | CT Report ---
PROCEDURE: HEAD WO INDICATIONS: mastoid tenderness TECHNIQUE: Noncontrast 4.5 mm thick angled axial sections acquired from the foramen magnum to the vertex. For r adiation dose reduction, the following was used: automated exposure control, adjustment of mA and/or kV according to patient size. COMPARISON: 01/23/2016. FINDINGS: Image quality: Excellent. CSF spaces: There is mild cerebral volume loss with prominence of the ventricles and sulci. Basal ci sterns are patent. No extra-axial fluid collections. Brain: No intracranial hemorrhage, mass, or mass effect. Hanks-white matter interface is preserved. T here are subcortical and periventricular white matter hypodensities consistent with mild chronic smal l vessel ischemic changes. Skull and face: Calvarium and visualized facial bones are intact, without suspicious lesions. Sinuses: Visualized sinuses demonstrate mild thickening within the ethmoid and maxillary sinuses. Th e mastoid air cells are clear. IMPRESSION: 1. No acute intracranial abnormality. 2. Mild chronic white matter small vessel ischemic changes and cerebral volume loss. 3. No CT evidence of mastoiditis. Reviewed by: Doni Brenner MD on 09/17/2021 11:30 AM [facility] Approved by: Doni Brenner MD on 09/17/2021 11:30 AM [facility] Station ID: [id number]
[2021-09-17 13:11] VITALS: BP 167/113
== END 2021-09-17 13:21 | disposition home or self-care (01) ==
LOC: ED 10:00
DX: H92.01 Otalgia, right ear (principal); I10 Essential (primary) hypertension; Z86.718 Personal history of other venous thrombosis and embolism; Z79.01 Long term (current) use of anticoagulants; I48.91 Unspecified atrial fibrillation
CPT/HCPCS: 36415; 80053; 83690; 84484; 85025; 93005; 99282; 99284

== ENCOUNTER 2021-10-16 08:00 | Outpatient (CLI) | payer OTHER | END 2021-10-16 23:59 | LOC: LAB 08:00 | PROVIDERS: ATTEND Physician Assistant | DX: R05.3 Chronic cough (principal); Z20.822 Contact with and (suspected) exposure to COVID-19 ==

== ENCOUNTER 2021-10-16 14:07 | Outpatient (CLI) | payer OTHER ==
--- NOTE | 2021-10-18 19:47 | XRAY Report ---
PROCEDURE: X-RAY OF THE CHEST TWO VIEWS INDICATIONS: Chest pain TECHNIQUE: 2 view(s) of the chest. COMPARISON: 09/17/2021 FINDINGS: Surgical changes and devices: None. Lungs and pleura: No pleural effusions or pneumothorax. Lungs are clear. Mediastinum: Mediastinal contours are normal. Heart size is normal. Bones and chest wall: No suspicious bony abnormalities. Soft tissues appear unremarkable. IMPRESSION: No acute cardiopulmonary abnormality. Reviewed by: Sameer Romero on 10/16/2021 1:45 PM [facility] Approved by: Sameer Romero on 10/16/2021 1:45 PM [facility] Station ID: [id number]
== END 2021-10-16 14:08 | disposition home or self-care (01) ==
LOC: DI.N 14:07
PROVIDERS: ATTEND Physician Assistant
DX: R05.3 Chronic cough (principal)

== ENCOUNTER 2021-11-26 09:14 | Outpatient (CLI) | payer OTHER ==
--- NOTE | 2021-11-26 11:48 | Ultrasound Report ---
PROCEDURE: Abdomen Limited INDICATIONS: ABN LIVER FUNCTION TESTS TECHNIQUE: Real-time focused scanning was performed of the abdomen, with image documentation. COMPARISON: FINDINGS: Liver: Liver shows diffusely increased echogenicity without focal mass lesion. No intrahepatic duct al dilation. Gallbladder: Sonolucent without cholelithiasis. No gallbladder wall thickening. No pericholecystic fluid or Baeza's sign. Common Bile Duct: 3 mm. Pancreas: Unremarkable as visualized. IMPRESSION: Hepatic fatty infiltration Reviewed by: Alexis Aguilera MD on 11/26/2021 10:47 AM [facility] Approved by: Alexis Aguilera MD on 11/26/2021 10:47 AM [facility] Station ID: [id number]
== END 2021-11-26 09:15 | disposition home or self-care (01) ==
LOC: DI 09:14
PROVIDERS: ATTEND Family Medicine
DX: R94.5 Abnormal results of liver function studies (principal); K76.0 Fatty (change of) liver, not elsewhere classified

== ENCOUNTER 2022-12-12 09:52 | Outpatient (CLI) | payer OTHER ==
--- NOTE | 2022-12-12 11:40 | XRAY Report ---
PROCEDURE: Shoulder 3 View RT INDICATIONS: RIGHT SHOULDER PAIN TECHNIQUE: 4 views of the shoulder were acquired. COMPARISON: None. FINDINGS: Bones: No fractures or dislocations. No suspicious bony lesions. Moderate degenerative changes are present at the right acromioclavicular joint. Visualized ribs appear intact. Soft tissues: No suspicious soft tissue calcifications. IMPRESSION: Generative change of the right shoulder. Reviewed by: Leeanna Olivas MD on 12/12/2022 11:39 AM [facility] Approved by: Leeanna Olivas MD on 12/12/2022 11:39 AM [facility] Station ID: [id number]
== END 2022-12-12 10:01 | disposition home or self-care (01) ==
LOC: DI.WOS 09:52
PROVIDERS: ATTEND Physician Assistant Surgical
DX: M19.011 Primary osteoarthritis, right shoulder (principal)

== ENCOUNTER 2023-01-15 10:35 | Outpatient (CLI) | payer OTHER ==
--- NOTE | 2023-01-15 15:05 | MRI Report ---
PROCEDURE: SHOULDER WO - RT INDICATIONS: RIGHT ROTATOR CUFF SYNDROME TECHNIQUE: Noncontrast oblique coronal T2 fast spin echo with fat saturation, oblique sagittal T1 spin echo and T2 fast spin echo with fat saturation, axial T1 spin echo and T2 fast spin echo with fat saturation t hrough the shoulder. COMPARISON: Right shoulder MRI 07/25/2018. FINDINGS: Image quality: Excellent. Rotator cuff: There is high-grade partial articular sided tearing of the supraspinatus tendon at the anterior insertion measuring approximately 8 mm in anteroposterior dimension with delamination and pr oximal retraction of articular sided fibers by approximately 6 mm. Findings have mildly progressed wh en compared to the exam from 07/25/2018. Attenuated bursal surface fibers appear to remain in continu ity, although a focal full-thickness perforation is not excluded. There is moderate to severe tendino sis and focal low-grade partial intrasubstance tearing of the infraspinatus tendon distally. The sandy s minor tendon is intact. There is high-grade partial articular sided tearing of the supraspinatus te ndon at the superior insertion. No significant rotator cuff muscle atrophy is seen. Bones and bursae: No acute trabecular bone injury or fracture. Chronic traction cystic changes are se en at the posterosuperior humeral head. No focal glenohumeral cartilage defect is seen. There is mild degenerative spurring in the glenoid rim. Severe degenerative changes are seen at the acromioclavicu lar joint and moderate amount of fluid is seen in the subacromial/subdeltoid bursa. There is a small amount of glenohumeral joint fluid in the superior subscapularis recess. Capsule and soft tissues: There is degeneration of the superior labrum. No displaced labral tear is seen. There is moderate to severe tendinosis and partial intrasubstance tearing of the proximal bicep s long head tendon with perching along the medial aspect of the biceps groove. There is effacement of the normal fat signal in the rotator interval. Glenohumeral ligaments appear to be intact. IMPRESSION: 1.At least high-grade partial articular sided tearing of the supraspinatus tendon at the distal inser tion measuring 8 mm in anteroposterior dimension, progressed when compared to the MRI from 07/25/2018 . Superimposed full-thickness perforation is not excluded. There is delamination and mild retraction of articular sided fibers by up to 6 mm. 2.Moderate to severe infraspinatus tendinosis and focal low-grade intrasubstance tearing at the dista l insertion. 3.High-grade partial articular sided tearing of the subscapularis tendon at the superior insertion, p rogressed when compared to the MRI from 07/25/2018. 4.Moderate to severe tendinosis and partial intrasubstance tearing of the proximal biceps long head t endon with perching along the medial aspect of the bicipital groove, which is worse when compared to the MRI from 07/25/2018. 5.Moderate to severe acromioclavicular joint osteoarthrosis. 6.Moderate subacromial/subdeltoid bursal effusion or bursitis. Reviewed by: Hernando Whitney MD on 01/15/2023 3:04 PM PDT Approved by: Hernando Whitney MD on 01/15/2023 3:04 PM PDT Station ID: [id number]
== END 2023-01-15 10:36 | disposition home or self-care (01) ==
LOC: DI 10:35
PROVIDERS: ATTEND Physician Assistant Surgical
DX: M75.111 Incomplete rotator cuff tear or rupture of right shoulder, not specified as traumatic (principal); S46.111A Strain of muscle, fascia and tendon of long head of biceps, right arm, initial encounter; M19.011 Primary osteoarthritis, right shoulder; M75.51 Bursitis of right shoulder

== ENCOUNTER 2023-04-18 09:28 | Outpatient (CLI) | payer OTHER ==
--- NOTE | 2023-04-18 15:38 | XRAY Report ---
PROCEDURE: Hip w/Pelvis 2-3V RT INDICATIONS: GROIN PAIN,RIGHT TECHNIQUE: AP pelvis with lateral view(s) of the right hip(s). COMPARISON: None. FINDINGS: Bones: No fractures or dislocations. No suspicious bony lesions. Moderate bilateral degenerative hip joint space narrowing. Soft tissues: No suspicious soft tissue calcifications or masses. IMPRESSION: Moderate bilateral hip arthritic change. No visualized acute fracture or dislocation. However, occult injury cannot be excluded. Recommend jimena rt interval imaging follow-up in 7-10 days as clinically indicated for additional evaluation. Reviewed by: Martha Almeida MD on 04/18/2023 3:37 PM PDT Approved by: Martha Almeida MD on 04/18/2023 3:37 PM PDT Station ID: [id number]
== END 2023-04-18 09:29 | disposition home or self-care (01) ==
LOC: DI 09:28
PROVIDERS: ATTEND Internal Medicine
DX: R10.31 Right lower quadrant pain (principal); M16.0 Bilateral primary osteoarthritis of hip

== ENCOUNTER 2023-04-25 09:45 | Outpatient (CLI) | payer OTHER ==
--- NOTE | 2023-04-25 10:59 | Ultrasound Report ---
PROCEDURE: Pelvic Limited or F/U INDICATIONS: GROIN PAIN TECHNIQUE: Real-time transabdominal scanning was performed of the right groin, with image documentation. COMPARISON: None. FINDINGS: Targeted ultrasound right groin demonstrates no sonographic abnormality. No hernia. IMPRESSION: No sonographic abnormality. Reviewed by: Andrés Daniel on 04/25/2023 10:58 AM PDT Approved by: Andrés Daniel on 04/25/2023 10:58 AM PDT Station ID: [id number]
== END 2023-04-25 09:46 | disposition home or self-care (01) ==
LOC: DI 09:45
PROVIDERS: ATTEND Internal Medicine
DX: R10.31 Right lower quadrant pain (principal)

== ENCOUNTER 2023-05-07 06:55 | Outpatient (CLI) | payer OTHER ==
[2023-05-07] MEDS ORDERED: iohexoL-300 100 ML VIAL ONE (07:46)
[2023-05-07] MEDS ORDERED: DIATRIZOATE MEGLU/DIATRIZO SOD 30 ML BOTTLE PO ONE (09:40)
[2023-05-07] MEDS ORDERED: iohexoL-300 100 ML VIAL IVP ONE (09:40)
--- NOTE | 2023-05-07 09:56 | CT Report ---
PROCEDURE: ABDOMEN/PELVIS W INDICATIONS: RIGHT GROIN PAIN CONTRAST: 100ml Omni 300 TECHNIQUE: After the administration of oral and intravenous contrast, 5 mm thick sections acquired from the diap hragms to the symphysis. 5 mm thick coronal and sagittal reformats were acquired. For radiation dos e reduction, the following was used: automated exposure control, adjustment of mA and/or kV accordin g to patient size. COMPARISON: 03/08/2017 FINDINGS: Image quality: Excellent. Lung bases and heart: There are LAD calcifications. Heart is normal in size. Lung bases are clear. Liver: No solid mass. Mild diffuse hepatic steatosis. Gallbladder and biliary tree: No radiopaque stones or wall thickening. No biliary dilation. Spleen: No splenomegaly. Pancreas: No pancreatic ductal dilation. Adrenals: No adrenal nodule. Kidneys and ureters: No hydronephrosis. No renal cystic lesion which requires follow up. No solid mas s. Bowel and peritoneum: No bowel distension. No pathologic free fluid. Diverticulosis without evidence of diverticulitis. Lymph nodes: No central or retroperitoneal adenopathy. Vessels: No infrarenal aortic aneurysm. PELVIS Reproductive organs: Unremarkable. Bladder: No abnormal wall thickening, accounting for underdistension. Pelvic lymph nodes: No pelvic adenopathy by size criteria. Bones: No aggressive osseous abnormality. Other: Question very small fat-containing right inguinal hernia. IMPRESSION: 1. There is a possible very small, fat-containing right inguinal hernia. 2. Diverticulosis without evidence of diverticulitis. 3. Mild diffuse hepatic steatosis. 4. LAD calcifications. Comment: If suspect that a small inguinal hernia may be the etiology of the patient's right groin minal n, consider limited ultrasound of the right groin for confirmation. Reviewed by: Joaquín Edouard MD on 05/07/2023 9:55 AM PDT Approved by: Joaquín Edouard MD on 05/07/2023 9:55 AM PDT Station ID: [id number]
== END 2023-05-07 06:56 | disposition home or self-care (01) ==
LOC: LAB 06:55
PROVIDERS: ATTEND Internal Medicine
DX: R10.32 Left lower quadrant pain (principal); R10.31 Right lower quadrant pain; K57.90 Diverticulosis of intestine, part unspecified, without perforation or abscess without bleeding; K76.0 Fatty (change of) liver, not elsewhere classified; I70.0 Atherosclerosis of aorta
CPT/HCPCS: 36415; 74177; 82565; Q9967

== ENCOUNTER 2023-06-13 11:30 | Outpatient (CLI) | payer OTHER ==
--- NOTE | 2023-06-13 14:12 | XRAY Report ---
PROCEDURE: Hip 2 View RT INDICATIONS: right hip pain TECHNIQUE: AP view the pelvis and lateral view of the right hip. COMPARISON: Right hip radiographs 04/18/2023. FINDINGS: Bones: No acute fractures or dislocations. No suspicious bony lesions. Severe joint space narrowi ng at the superior right hip with subchondral sclerosis and marginal osteophyte formation and subchon dral cystic changes. Moderate degenerative changes are seen at the left hip. Soft tissues: No suspicious soft tissue calcifications or masses. IMPRESSION: Severe right hip and moderate left hip osteoarthrosis. Reviewed by: Hernando Whitney MD on 06/13/2023 2:11 PM PDT Approved by: Hernando Whitney MD on 06/13/2023 2:11 PM PDT Station ID: [id number]
== END 2023-06-13 23:59 | disposition home or self-care (01) ==
LOC: DI.WOS 11:30
PROVIDERS: ATTEND Physician Assistant Surgical
DX: M16.11 Unilateral primary osteoarthritis, right hip (principal)

== ENCOUNTER 2023-07-09 09:00 | Outpatient (CLI) | payer OTHER ==
--- NOTE | 2023-07-09 16:49 | XRAY Report ---
PROCEDURE: Knee 4 View BILAT INDICATIONS: BILAT KNEE PAIN TECHNIQUE: 4 views of the bilateral knee(s) were acquired. COMPARISON: None. FINDINGS: Bones: No fractures or dislocations. No suspicious bony lesions. Bilateral degenerative arthritis , left greater than right. There are tricompartment osteophytes bilaterally. There is severe left kne e medial compartment joint space loss and moderate to severe right knee medial compartment joint spac e loss. Soft tissues: No knee joint effusion. No suspicious soft tissue calcifications or masses. IMPRESSION: Bilateral degenerative arthritis of the knees, left greater than right. Reviewed by: Joaquín Edouard MD on 07/09/2023 4:48 PM PDT Approved by: Joaquín Edouard MD on 07/09/2023 4:48 PM PDT Station ID: [id number]
== END 2023-07-09 23:59 | disposition home or self-care (01) ==
LOC: DI.WOS 09:00
PROVIDERS: ATTEND Physician Assistant Surgical
DX: M17.0 Bilateral primary osteoarthritis of knee (principal)

== ENCOUNTER 2023-09-25 08:57 | Day surgery (SDC) | payer OTHER ==
[~2023-09-25 08:57] MED LIST: ACETAMINOPHEN 500 MG TABLET PO ONE; BUPIVACAINE 0.25% PF 30 ML VIAL ONE; CELECOXIB 100 MG CAPSULE PO ONE; DEXAMETHASONE 10 MG/ML VIAL ONE; VANCOMYCIN 1 GM VIAL ONE; ceFAZolin 2 GM VIAL ONE
[2023-09-25] MEDS ORDERED: LACTATED RINGERS 1,000 ML IV ONE ×3 (09:48→13:31)
[2023-09-25] MEDS ORDERED: ONDANSETRON 4 MG/2 ML VIAL IVP PRN ×2 (10:30→13:59)
[2023-09-25] MEDS ORDERED: ATROPINE ABBOJECT 1 MG/10 ML SYRINGE IVP PRN (10:30)
[2023-09-25] MEDS ORDERED: METOCLOPRAMIDE 10 MG/2 ML VIAL IVP PRN (10:30)
[2023-09-25] MEDS ORDERED: HYDROmorphone 0.5 MG/0.5 ML SYRINGE IVP PRN (10:30)
[2023-09-25] MEDS ORDERED: MORPHINE 2 MG/ML CARPUJECT IVP PRN (10:30)
[2023-09-25] MEDS ORDERED: ePHEDrine 50 MG/ML VIAL IVP PRN (10:30)
[2023-09-25] MEDS ORDERED: NALOXONE 0.4 MG/ML VIAL IVP PRN (10:30)
[2023-09-25] MEDS ORDERED: fentaNYL 100 MCG/2 ML VIAL IVP PRN ×2 (10:30→14:56)
--- NOTE | 2023-09-25 10:30 | ANESTHESIA ---
Pre-Anesthesia VS, & Labs - Diagnosis R hip OA - Procedure R BILLY Vital Signs: Temp Pulse Resp BP Pulse Ox O2 Flow Rate 36.7 C 55 L 20 113/81 H 96 09/25/23 09:50 09/25/23 09:50 09/25/23 09:50 09/25/23 09:50 09/25/23 09:50 Height: 5 ft 8 in Weight (kg): 123 kg Body Mass Index: 41.2 BMI Classification: Morbidly Obese - NPO >8 hours - Lab Results Lab results reviewed: Yes Home Medications and Allergies Home Medications: Ambulatory Orders Metoprolol Succinate [Toprol Xl] 50 mg PO DAILY 09/19/23 Tadalafil [Cialis] 20 mg PO DAILY PRN 09/19/23 Valsartan/Hydrochlorothiazide [Diovan Hct 320-12.5 mg Tab] 1 each PO DAILY 09/19/23 Venlafaxine ER [Effexor ER] 37.5 mg PO DAILY 03/09/17 Metoprolol Succinate [Toprol Xl] 50 mg PO DAILY 09/19/23 Tadalafil [Cialis] 20 mg PO DAILY PRN 09/19/23 Valsartan/Hydrochlorothiazide [Diovan Hct 320-12.5 mg Tab] 1 each PO DAILY 09/19/23 Allergies/Adverse Reactions: Allergies Allergy/AdvReac Type Severity Reaction Status Date / Time lisinopril Allergy cough Verified 09/25/23 10:23 Anes History & Medical History - Anesthetic History Anesthesia Complications: reports: No previous complications Family history of Anesthesia Complications: Denies Family history of Malignant Hyperthermia: Denies - Medical History Cardiovascular: reports: Hypertension, Deep vein thrombosis, Atrial fibrillation Pulmonary: reports: None Gastrointestinal: reports: Colon polyps Urinary: reports: None Musculoskeletal: reports: Osteoarthritis Endocrine/Autoimmune: reports: None Skin: reports: None Smoking Status: Never smoker - Surgical History General: reports: Colonoscopy, Other Eyes Ears Nose Throat (EENT): reports: Tonsil/Adenoidectomy Orthopedic: reports: Arthroscopic surgery, Other Exam General: Alert, Oriented x3, Cooperative Dental: WNL Mouth Openin Fingerbreadth Neck Mobility: Normal Mallampati classification: II Thyromental Distance: 4-6 cm Respiratory: Lungs clear, Normal breath sounds, No respiratory distress Neurological: Normal speech Mental/Cognitive Status: Alert/Oriented X3, Normal for patient Cognitive Status: Within normal limits Plan Anesthesia Type: Spinal, Fascia Iliaca Block Regional Block: Per Surgeon's request for Post Op pain control Consent for Procedure(s) Verified and Reviewed: Yes Code Status: Attempt Resuscitation ASA classification: 3-Severe systemic disease Is this case an emergency?: No
[2023-09-25] MEDS ORDERED: PROPOFOL 500 MG/50 ML 500 MG/50 ML VIAL ONE (10:51)
[2023-09-25] MEDS ORDERED: BUPIVACAINE 0.5% PF 10 ML VIAL ONE (10:51)
[2023-09-25] MEDS ORDERED: LACTATED RINGERS 1,000 ML IV SCH (11:00)
[2023-09-25] MEDS ORDERED: MIDAZOLAM 2 MG/2 ML VIAL ONE (11:09)
[2023-09-25] MEDS ORDERED: TRANEXAMIC ACID 1,000 MG/10 ML VIAL ONE (11:38)
[2023-09-25] MEDS ORDERED: ePHEDrine 50 MG/ML VIAL IVP ONE (11:40)
[2023-09-25] MEDS ORDERED: SODIUM CHLORIDE 0.9% 10 ML VIAL IVP ONE (11:40)
[2023-09-25] MEDS ORDERED: BUPIVACAINE 0.25% PF 30 ML VIAL SUBQ ONE (11:57)
[2023-09-25] MEDS ORDERED: VANCOMYCIN 1 GM VIAL MC ONE (11:57)
[2023-09-25] MEDS ORDERED: PHENYLEPHRINE HCL 0.5 MG/5 ML AMPULE ONE (12:02)
[2023-09-25] MEDS ORDERED: KETAMINE 200 MG/20 ML VIAL ONE (12:10)
[2023-09-25] MEDS ORDERED: PROPOFOL 200 MG/20 ML VIAL IVP ONE ×3 (12:25→13:28)
[2023-09-25] MEDS ORDERED: DEXMEDETOMIDINE 200 MCG/2 ML VIAL ONE (13:25)
--- NOTE | 2023-09-25 13:31 | OPERATIVE REPORT ---
Operative Report - General Procedure Date: 09/25/23 Planned Procedure: Right total hip replacement Pre-Op Diagnosis: Osteoarthritis right hip Procedure Performed: Right total hip arthroplasty: [employer] total hip system utilizing a #9 an thology hydroxyapatite porous-coated femoral component with high offset, 36 mm +4 mm Oxinium femoral head, 56 mm R3 acetabular cup and neutral polyethylene liner Post Op Diagnosis: Same as preoperative diagnosis - Procedure Note Primary Surgeon: García Rodas MD Secondary Surgeon: Marga AZEVEDO Anesthesia Provider: Tom Barahona CRNA Anesthesia Technique: Spinal Estimated Blood Loss (mL): 200 Indications: This is a 63-year-old gentleman with marked pain about his right hip that is progressively worsened mostly over the past 6 months to the point where it is very difficult to take any steps without pain. He has tried modification of activity, anti-inflammatory medication, Tylenol and previous cortisone hip injection. He had painful limited motion to the right hip. His x-rays showed complete loss of joint space to right hip, uncovering of part of the femoral head, deformity of head, cyst and sclerosis consistent with advanced osteoarthritis right hip. He has attended joint camp and has had preoperative medical evaluation. He was agreement to this surgery for his right hip and signed informed consent for right total hip arthroplasty Findings: He had eburnated bone surfaces to both femoral head and acetabulum weightbearing surfaces. There were osteophytes about the femoral neck and head and some to the acetabulum. Complications: None - Other Other Information/Narrative: After satisfactory spinal anesthesia had been achieved, the patient was placed in a lateral decubitus position with the right hip facing superiorly. He was secured in the lateral decubitus position using a pegboard with 2 post securing the torso and 2 posts securing the pelvis. The right hip and right lower extremity were prepped and draped in a sterile manner in the usual fashion. A timeout procedure was performed by the entire operating room team and all were in agreement. A longitudinal incision was made about the lateral right hip beginning at the vastus lateralis ridge of the proximal femur and extending it proximally approximately 3 fingerbreadths above the trochanter. The subcutaneous tissue and fascia luma were split in line with the incision. The anterior one third of the gluteus medius was incised at the myotendinous junction. The gluteus medius was retracted medially. The hip capsule was exposed and was split in a T-shaped fashion. Part of the anterior hip capsule was excised. The femoral head was dislocated with flexion, adduction and external rotation. An osteotomy was done to the femoral neck using a osteotomy guide. Retractors were placed behind the femoral neck to protect the soft tissues from the oscillating saw. The proximal femur was retracted. 2 acetabular retractors were placed one anteriorly directly against bone to reduce any soft tissue impingement to femoral nerve. The second retractor was placed more posteriorly directly against bone and preventing any impingement against sciatic nerve. The acetabulum was prepared with a large curette. Medialization of the acetabulum was performed with a small acetabular reamer and then widening was done up to a 55 mm reamer the final reamers were placed in approximately 20 degrees anteversion and 45 degrees of abduction. A trial acetabular component was inserted, 56 mm and this fit well. A permanent 56 mm R3 acetabular 3-hole component was then impacted in 40 degrees of abduction and approximately 20 degrees of anteversion. This had good fixation to push pull and rotation. The stability of the acetabular cup was very good. A permanent neutral acetabular liner was inserted into the cup. The femoral canal was opened with a box osteotome, starting reamer, lateralizing reamer and then a short broach. Broaching was carried out to a #9. Calcar reaming was performed. Good fit and stability to the #9 stem was achieved. Trial reduction was performed. Hip motion was very good and the hip was stable to dislocation maneuvers. The trial components were removed. The #9 Anthology high offset femoral stem was impacted and fully seated. The femoral head was impacted on the femoral trunni on. There was good stability to push pull and rotation. A 36 mm +4 head was impacted on the trunnion. The hip was reduced, had good leg length tension and good stability with dislocation maneuvers. 3-minute lavage with dilute Betadine was performed. The hip abductors were repaired at the myotendinous junction with #1 stratofix The fascia luma was closed with #1 stratofix. The subcutaneous tissue was closed with 2-0 stratofix. The skin was closed with a 3-0 Monocryl subcuticular closure and Dermabond. He tolerated the procedure well. A physician accounting manager assistant controller was utilized during the procedure to provide retraction and protection of neurovascular structures as well as to facilitate dislocation and reduction of the hip joint.
[2023-09-25] MEDS ORDERED: traMADol 50 MG TABLET PO PRN (13:59)
[2023-09-25] MEDS ORDERED: DOCUSATE SODIUM 100 MG CAPSULE PO PRN (13:59)
[2023-09-25] MEDS ORDERED: SODIUM CHLORIDE FLUSH 0.9% 10 ML SYRINGE IVP PRN (13:59)
[2023-09-25] MEDS ORDERED: ceFAZolin (2G) 2 GM in SODIUM CHLORIDE 0.9% MINIBAG 100 ML IV SCH (14:00)
--- NOTE | 2023-09-25 14:30 | ANESTHESIA POST OP EVALUATION ---
Anesthesia Post Eval - Post Anesthesia Eval Vitals: Last Vital Signs Temp 36.2 C L 09/25/23 14:25 Pulse 54 L 09/25/23 14:25 Resp 18 09/25/23 14:25 BP 111/72 09/25/23 14:25 Pulse Ox 98 09/25/23 14:25 O2 Flow Rate CV Function Including HR & BP: Stable Pain Control: Satisfactory Nausea & Vomiting: Negative Mental Status: Baseline Respiratory Status: Airway Patent Hydration Status: Satisfactory Anesthesia Complications: None
[2023-09-25] MEDS: ACETAMINOPHEN 500 MG TABLET PO SCH ×2 (14:58→19:37)
[2023-09-25] MEDS: traMADol 50 MG TABLET PO SCH ×2 (17:56→23:58)
[2023-09-25] MEDS: oxyCODONE 5 MG TABLET PO PRN (19:28)
[2023-09-25] MEDS: ceFAZolin (2G) 2 GM in SODIUM CHLORIDE 0.9% MINIBAG 100 ML IV SCH (19:30)
[2023-09-25] MEDS: SODIUM CHLORIDE FLUSH 0.9% 10 ML SYRINGE IVP SCH ×2 (19:30→23:59)
--- NOTE | 2023-09-25 19:30 | XRAY Report ---
PROCEDURE: Pelvis 1 View INDICATIONS: post operative imaging TECHNIQUE: 1 view(s) of the pelvis acquired. COMPARISON: None. FINDINGS: Bones: Right sided total hip arthroplasty in good position. No evidence of fracture. Soft tissues: Expected postoperative IMPRESSION: Right total hip arthroplasty in good position Reviewed by: Alexis Aguilera MD on 09/25/2023 6:29 PM [place] Approved by: Alexis Aguilera MD on 09/25/2023 6:29 PM [place] Station ID: [id number]
[2023-09-25] MEDS: CELECOXIB 100 MG CAPSULE PO SCH (21:32)
[2023-09-25] MEDS: APIXABAN 5 MG TABLET PO SCH (21:32)
[2023-09-25] MEDS: ethyl alcohoL 62% SWAB AMPULE NAS SCH (21:33)
[2023-09-26] MEDS: NS W/20 MEQ KCL 1,000 ML IV SCH ×2 (01:00→12:28)
[2023-09-26] MEDS: ACETAMINOPHEN 500 MG TABLET PO SCH ×2 (01:34→09:06)
[2023-09-26] MEDS: oxyCODONE 5 MG TABLET PO PRN ×3 (01:34→13:25)
[2023-09-26] MEDS: ceFAZolin (2G) 2 GM in SODIUM CHLORIDE 0.9% MINIBAG 100 ML IV SCH (03:11)
[2023-09-26 04:54] VITALS: BP 117/69; O2SAT 95
[2023-09-26] MEDS: traMADol 50 MG TABLET PO SCH ×2 (06:13→12:27)
[2023-09-26] MEDS ORDERED: dexAMETHasone 4 MG TABLET PO SCH (07:00)
[2023-09-26] MEDS ORDERED: hydroCHLOROthiazide 12.5 MG CAPSULE PO SCH (09:00)
[2023-09-26] MEDS ORDERED: VALSARTAN PO SCH (09:00)
[2023-09-26] MEDS ORDERED: VENLAFAXINE ER 37.5 MG CAPSULE PO SCH (09:00)
[2023-09-26] MEDS ORDERED: METOPROLOL SUCCINATE 50 MG TABLET PO SCH (09:00)
[2023-09-26] MEDS ORDERED: [UNRECOGNIZED DRUG - OTHER] PO SCH (09:00)
[2023-09-26] MEDS ORDERED: LOSARTAN 50 MG TABLET PO SCH (09:00)
[2023-09-26] MEDS ORDERED: HYDROCHLOROTHIAZIDE PO SCH (09:00)
[2023-09-26] MEDS: ethyl alcohoL 62% SWAB AMPULE NAS SCH (09:07)
[2023-09-26] MEDS: SODIUM CHLORIDE FLUSH 0.9% 10 ML SYRINGE IVP SCH (09:07)
[2023-09-26] MEDS: CELECOXIB 100 MG CAPSULE PO SCH (09:07)
[2023-09-26] MEDS: APIXABAN 5 MG TABLET PO SCH (09:07)
--- NOTE | 2023-09-26 13:31 | PROVIDER PROGRESS NOTE ---
Subjective - General Procedure Date: 09/25/23 Post Op Days: 1 Procedure Performed: Right total hip arthroplasty - Other Other Information/Narrative: Patient alert, sitting upright in chair accompanie by friend He endorses moderate pain control and reports he walked well with physical therapy. He has no acute concerns or questions helpful to go home today Objective - Patient Data Reviewed Vital Signs: Yes Weight: Weight 09/24/23 09/25/23 09/26/23 23:59 23:59 23:59 Weight (kg) 123 kg Intake & Output: Intake and Output Totals x24h 09/24/23 09/25/23 09/26/23 23:59 23:59 23:59 Intake Total 300 100 Output Total 200 Balance 100 100 - Imaging Results Radiology Imaging: positive: Final report received - Current Medications Current Medications: Current Medications Generic Name Dose Route Start Last Admin Trade Name Glennq PRN Reason Stop Dose Admin Acetaminophen 1,000 mg 09/25/23 14:00 09/26/23 09:06 Acetaminophen 500 Mg Tablet PO 1,000 mg Q6H WIL Administration Alcohol 1 amp 09/25/23 21:00 09/26/23 09:07 Ethyl Alcohol 62% Swab Ampule MIKE 1 amp BID WIL Administration Apixaban 5 mg 09/25/23 21:00 09/26/23 09:07 Apixaban 5 Mg Tablet PO 5 mg BID WIL Administration Celecoxib 200 mg 09/25/23 21:00 09/26/23 09:07 Celecoxib 100 Mg Capsule PO 200 mg BID WIL Administration Hydrochlorothiazide 12.5 mg 09/26/23 09:00 09/26/23 09:07 Hydrochlorothiazide 12.5 Mg Capsule PO 12.5 mg DAILY WIL Administration Potassium Chloride/Sodium Chloride 1,000 mls @ 100 mls/hr 09/25/23 14:00 09/26/23 12:28 Normal Saline 0.9% W/20 Meq Kcl IV Not Given .Q10H WIL Losartan Potassium 100 mg 09/26/23 09:00 09/26/23 09:07 Losartan 50 Mg Tablet PO 100 mg DAILY WIL Administration Metoprolol Succinate 50 mg 09/26/23 09:00 09/26/23 09:07 Metoprolol Succinate 50 Mg Tablet PO 50 mg DAILY WIL Administration Oxycodone HCl 5 mg 09/25/23 13:59 09/26/23 13:25 Oxycodone 5 Mg Tablet PO 5 mg Q6HR PRN Administration Severe Breakthrough pain(8-10) Sodium Chloride 10 ml 09/25/23 17:00 09/26/23 09:07 Sodium Chloride Flush 0.9% 10 Ml Syringe IVP 10 ml 0100,0900,1700 WIL Administration Tramadol HCl 50 mg 09/25/23 18:00 09/26/23 12:27 Tramadol 50 Mg Tablet PO 50 mg Q6HR WIL Administration Venlafaxine HCl 37.5 mg 09/26/23 09:00 09/26/23 09:07 Venlafaxine Er 37.5 Mg Capsule PO 37.5 mg DAILY WIL Administration - Physical Exam Comments/Other: well-developed, well-nourished, 63-year-old male, no acute distress. right hip Mepilex dressing is dry and intact without hematoma. Neurovascular intact to femoral and sciatic nerve distribution. Patient peers comfortable, ice pack in place ABX Reporting Has patient been on IV antibiotics over the past 48 hours?: Yes Impression/Plan - Problem List Problem List: 63-year-old male with a past medical history of atrial fibrillation, hyperten efrain and DVT is postoperative day 1 from right total hip arthroplasty by Dr. Rodas at [facility] on 09/25/2023. His pain is moderately controlled and he is worked with physical therapy and been up to chair and with front wheel walker. He is recovering well. He is tolerating oral diet. Plan: - 5 mg Eliquis twice daily for anticoagulation and DVT prophylaxis - Physical and occupational therapy evaluation yesterday and today - Pain control with scheduled tylenol, celebrex, tramadol and oxycodone as needed - Weight bearing as tolerated with front wheeled walker at all times - Follow up with orthopedic clinic in 5 days - Mepilex dressing to remain in place until follow up - Refer to OPS discharge instructions and call the orthopedic office with outstanding questions - Bowel regimen in hospital - Normal diet, IV fluids to be discontinued when tolerating oral diet without nausea and emesis - Home medications resumed today
== END 2023-09-26 13:30 | disposition home or self-care (01) ==
LOC: SDS 08:57 → MS3 14:47 → SDS 09-26 13:30
PROVIDERS: ATTEND Orthopaedic Surgery
DX: M16.11 Unilateral primary osteoarthritis, right hip (principal); I10 Essential (primary) hypertension; I48.91 Unspecified atrial fibrillation; E66.01 Morbid (severe) obesity due to excess calories; Z68.41 Body mass index [BMI] 40.0-44.9, adult
CPT/HCPCS: 27130; 72170; 97116; 97161; 97166; A9270; C1713; C1776; J2372; J3370; J3490; J7120; J8540

== ENCOUNTER 2023-11-19 08:00 | Outpatient (CLI) | payer OTHER ==
--- NOTE | 2023-11-19 14:28 | XRAY Report ---
PROCEDURE: Hip 2 View RT INDICATIONS: RIGHT TOTAL HIP TECHNIQUE: 2 view(s) of the hip were acquired. COMPARISON: Pelvic radiograph dated 09/25/2023 FINDINGS: Bones: There is prior right total hip arthroplasty. Right hip alignment is anatomic and is unchanged from prior study. No gross hardware loosening or failure. No fractures or dislocations. Moderate le ft hip joint osteoarthritic changes are seen. No evidence of avascular necrosis of femoral head. No s uspicious bony lesions. The visualized pelvic ring appears intact. Soft tissues: No suspicious soft tissue calcifications or masses. IMPRESSION: 1. Prior right total hip arthroplasty with stable and anatomic right hip alignment. No evidence of aguilar rdware loosening or failure. No acute fracture or dislocation. Reviewed by: Teja Guzman MD on 11/19/2023 2:26 PM PST Approved by: Teja Guzman MD on 11/19/2023 2:26 PM PST Station ID: [id number]
== END 2023-11-19 23:59 | disposition home or self-care (01) ==
LOC: DI.WOS 08:00
PROVIDERS: ATTEND Orthopaedic Surgery
DX: Z96.641 Presence of right artificial hip joint (principal)

== ENCOUNTER 2023-12-26 08:00 | Outpatient (CLI) | payer OTHER ==
--- NOTE | 2023-12-26 15:52 | XRAY Report ---
PROCEDURE: Shoulder 3 View RT INDICATIONS: RIGHT SHOULDER PAIN TECHNIQUE: 3 views of the shoulder were acquired. COMPARISON: Right shoulder radiographs 12/12/2022. FINDINGS: Bones: No fractures or dislocations. Moderate degenerative changes at the AC joint. Mild degenerativ e changes at the glenohumeral joint. No suspicious bony lesions. Visualized ribs appear intact. Soft tissues: No suspicious soft tissue calcifications. The visualized lungs are within normal limi ts. 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 Findings similar. Reviewed by: Dmitriy Patton MD on 12/26/2023 3:50 PM PDT Approved by: Dmitriy Patton MD on 12/26/2023 3:50 PM PDT Station ID: [id number]
== END 2023-12-26 23:59 | disposition home or self-care (01) ==
LOC: DI.WOS 08:00
PROVIDERS: ATTEND Physician Assistant Surgical
DX: M19.011 Primary osteoarthritis, right shoulder (principal)

== ENCOUNTER 2024-03-16 15:03 | Outpatient (CLI) | payer OTHER ==
--- NOTE | 2024-03-16 15:48 | XRAY Report ---
PROCEDURE: Ribs w/PA Chest 3+V LT INDICATIONS: LEFT SHOULDER PAIN TECHNIQUE: 2 views of the ribs were acquired, along with a single view chest. COMPARISON: None. FINDINGS: Bones: No acute displaced fracture identified by radiography in the ribs. Shoulder findings are separ ately dictated, degenerative changes are partially seen. Soft tissues: Low lung volumes. Possible mild lung opacities at the bases. IMPRESSION: No acute displaced rib fracture is identified on radiography. If there is high concern for occult inj ury, consider repeat radiography or cross-sectional imaging. Shoulder findings are separately dictated and are seen on dedicated views. Mild lower lung opacities are present, possibly atelectasis or early airspace disease. Consider futur e imaging surveillance to assess for resolution. Reviewed by: Tu Marroquin MD on 03/16/2024 3:47 PM PDT Approved by: Tu Marroquin MD on 03/16/2024 3:47 PM PDT Station ID: [id number]
--- NOTE | 2024-03-16 15:53 | XRAY Report ---
PROCEDURE: Shoulder 2+V LT INDICATIONS: LEFT SHOULDER PAIN TECHNIQUE: 3 views of the shoulder were acquired. COMPARISON: None. FINDINGS: Bones: No fractures or dislocations. Mild degenerative changes of the acromioclavicular joint. No oliva spicious bony lesions. Visualized ribs appear intact. Soft tissues: No suspicious soft tissue calcifications. The visualized lungs are within normal limi ts. IMPRESSION: No acute bony abnormality. Mild degenerative changes of the acromioclavicular joint. Reviewed by: Balaji Ramos MD on 03/16/2024 3:52 PM PDT Approved by: Balaji Ramos MD on 03/16/2024 3:52 PM PDT Station ID: [id number]
--- NOTE | 2024-03-16 15:54 | XRAY Report ---
PROCEDURE: Hip w/Pelvis 2-3V LT INDICATIONS: LEFT HIP PAIN TECHNIQUE: 2 views of the hip were acquired. COMPARISON: 11/19/2023 FINDINGS: Bones: No fractures or dislocations. Stable appearance of right hip arthroplasty without evidence o f interval complication. Moderate degenerative changes of left hip with joint space narrowing and mar ginal spurring. No suspicious bony lesions. Soft tissues: No suspicious soft tissue calcifications or masses. IMPRESSION: 1.No acute bony abnormality. 2.Moderate degenerative changes of the left hip. 3.Stable appearance of right hip arthroplasty. Reviewed by: Balaji Ramos MD on 03/16/2024 3:53 PM PDT Approved by: Balaji Ramos MD on 03/16/2024 3:53 PM PDT Station ID: [id number]
== END 2024-03-16 15:04 | disposition home or self-care (01) ==
LOC: DI 15:03
PROVIDERS: ATTEND Internal Medicine
DX: R91.8 Other nonspecific abnormal finding of lung field (principal); M19.012 Primary osteoarthritis, left shoulder; M16.12 Unilateral primary osteoarthritis, left hip; Z96.641 Presence of right artificial hip joint

== ENCOUNTER 2024-04-14 11:29 | Outpatient (CLI) | payer OTHER ==
--- NOTE | 2024-04-15 02:10 | XRAY Report ---
PROCEDURE: Hip w/Pelvis 2-3V RT INDICATIONS: RIGHT TOTAL HIP ARTHROPLASTY TECHNIQUE: 2 views of the hip were acquired. COMPARISON: 03/16/2024 FINDINGS: Bones: No fractures or dislocations. No suspicious bony lesions. Total right hip arthroplasty in go od position, unchanged in prior exam. No evidence of hardware failure or loosening Soft tissues: No suspicious soft tissue calcifications or masses. IMPRESSION: Right hip arthroplasty in good position Reviewed by: Alexis Aguilera MD on 04/15/2024 1:09 AM [email or web address] Approved by: Alexis Aguilera MD on 04/15/2024 1:09 AM [id number] Station ID: [id number]
== END 2024-04-14 11:30 | disposition home or self-care (01) ==
LOC: DI 11:29
PROVIDERS: ATTEND Orthopaedic Surgery
DX: Z09 Encounter for follow-up examination after completed treatment for conditions other than malignant neoplasm (principal); Z96.641 Presence of right artificial hip joint